=== PATIENT | female | born 1995 | race Caucasian/White ===

== ENCOUNTER 2024-04-17 20:26 | Emergency (ER) | payer SELFPAY ==
--- NOTE | ~2024-04-17 | US_ITS ---
EXAMINATION: US transvaginal DATE: 04/17/2024 22:33 INDICATION: rule out torsion TECHNIQUE: Multiple transabdominal and endovaginal sonographic images of the pelvis were obtained. COMPARISON: CT abdomen pelvis, same date FINDINGS: Uterus: 7.8 x 3.5 x 4.1 cm. Endometrial complex measures 10 mm. Right Ovary: 2.4 x 2.2 x 1.8 cm. Vascular flow is present. No adnexal mass. Left Ovary: 3.0 x 2.4 x 2.6 cm. Vascular flow is present. Corpus luteal cyst There is no free fluid in the pelvis. IMPRESSION: Normal pelvic sonogram findings. No sonographic evidence of ovarian torsion. Reviewed, dictated and finalized at [facility].
--- NOTE | ~2024-04-17 | CT_ITS ---
EXAMINATION: CT abdomen pelvis w con DATE: 04/17/2024 21:51 INDICATION: LLQ>RLQ tenderness TECHNIQUE: Computed tomography (CT) of the abdomen and pelvis was performed with 100 mL Omnipaque-350 intravenous contrast. Automated exposure control and iterative reconstruction technique were employe d. The dose-length product was 750.53 mGy-cm. COMPARISON: None. FINDINGS: Lower thorax: Unremarkable Liver: Normal. Biliary/Gallbladder: Gallbladder is absent. No bile duct dilation. Pancreas: No mass or duct dilation. Spleen: Normal. Adrenals:No mass. Kidneys: No suspicious mass, obstructing stone, or hydronephrosis. GI tract: No small or large bowel dilation. Normal appendix. Mesentery/Peritoneum: No ascites, mass, or free air. Retroperitoneum: No mass. Pelvis: Pelvic organs are within normal limits. Left corpus luteal cyst. Soft Tissues: Soft tissues and body wall unremarkable. Bones: No acute osseous finding. IMPRESSION: No acute abdominopelvic process detected. Reviewed, dictated and finalized at location K.
[2024-04-17 20:32] VITALS: BP 141/78; PULSE 107; RESP 15; TEMP 36.9; O2SAT 98
[2024-04-17 21:16] LABS: Basophils Percent Auto 0.4 % (0.2-1.2); Eosinophils Absolute Auto 0.3 K/mm3 (0-0.3); Eosinophils Percent Auto 2.9 % (0-4.4); Hematocrit 42.2 % (37.0-47.0); Hemoglobin 14.3 g/dL (12.0-15.0); Immature Granulocyte Absolute 0.03 K/mm3 (0.00-0.031); Immature Granulocyte Percent A 0.3 % (0-0.5); Lymphocytes Absolute Auto 2.71 K/mm3 (0.9-3.2); Mean Corpuscular HGB Conc 33.9 g/dl (32-36); Mean Corpuscular Hemoglobin 30.6 pg (26-34); Mean Corpuscular Volume 90.4 fl (80-100); Mean Platelet Volume 12.2 fl (7.4-10.4); Monocytes Absolute Auto 1.1 K/mm3 (0.1-0.6); Monocytes Percent Auto 9.5 % (2.6-8.5); Neutrophils Absolute Auto 7.1 K/mm3 (1.3-6.7); Neutrophils Percent Auto 62.9 % (45.5-73.1); Platelet Count Result 227 k/mm3 (150-375); Red Blood Count 4.67 M/mm3 (4.2-5.4); White Blood Count 11.3 K/mm3 (4.5-10.0)
[2024-04-17 21:19] LABS: Appearance Urine Cloudy (Clear); Bacteria Urine None Seen /hpf; Bilirubin Urine Negative (Negative); Blood Urine Negative (Negative); Color Urine Yellow (Yellow); Glucose Urine UA Negative (Negative); Ketones Urine Negative (Negative); Leukocyte Esterase Ur Negative LEU/UL (Negative); Nitrate Urine Negative (Negative); Non Pathogenic Casts 0-2; Protein Urine Negative (Negative); RBC Urine 0-2 /hpf (0-2); Specific Grav Ur 1.009 (1.001-1.035); Squamous Epithelial Cell Urine Occasional /hpf (Few); Urobilinogen Urine 0.2 mg/dL (<2.0); WBC Urine 0-5 /hpf (0-3); pH Urine 8.5 (5.0-9.0)
[2024-04-17 21:20] LABS: Add Urine Microscopic? YES
[2024-04-17 21:32] LABS: Alanine Aminotransferase 18 U/L (6-35); Albumin Level 4.6 g/dL (3.5-5.1); Alkaline Phosphatase 82 U/L (38-126); Anion Gap 7 mmol/L (4-12); Aspartate Amino Transferase 24 U/L (14-36); Bilirubin,Total 0.5 mg/dL (0.2-1.3); Blood Urea Nitrogen 10 mg/dL (7-17); Calcium 9.2 mg/dL (8.4-10.2); Carbon Dioxide 25 mmol/L (22-30); Chloride 106 mmol/L (98-107); Estimated Glomerular Filt Rate > 60; Glucose 99 mg/dL (65-110); Lipase 48 U/L (23-300); Potassium 3.8 mmol/L (3.4-5.0); Sodium 138 mmol/L (137-145)
--- NOTE | 2024-04-17 21:48 | ED.FEMALEGU ---
HPI - Female Genitourinary General Chief complaint: Abdominal Pain Stated complaint: abd pain, dysuria Time Seen by Provider: 04/17/24 20:35 Source: patient Mode of arrival: ambulatory Limitations: no limitations History of Present Illness HPI Narrative: This is a 28-year-old female who presents to the ED with chief complaint on abdominal pain x1 day. Reports that she felt okay this morning however started having pain while she was at work. States the pain has been all across the lower abdomen but worse in the left lower quadrant. States it comes and goes in severity. Certainly is worse with walking or certain movements. She also reports it her worse while trying to pee but denies dysuria specifically. Denies hematuria, flank pain, chest pain, shortness of breath, cough. Endorses constipation but has never had pain like this with constipation. Denies diarrhea, fevers, chills, syncope nausea, vomiting. Related Data Allergies Allergy/AdvReac Type Severity Reaction Status Date / Time Penicillins Allergy Mild Verified 09/27/12 15:23 amoxicillin Allergy Verified 09/27/12 15:23 Review of Systems Review of Systems: All systems as dictated in HPI Exam Narrative: GENERAL: Well-appearing, well-nourished, and in no acute distress. HEAD: Normocephalic, atraumatic. EYES: PERRLA and EOMI. ENT: Nares clear, no rhinorrhea or epistaxis. Mucous membranes moist. Oropharynx without tonsillar hypertrophy exudate or other lesions. NECK: Supple. No adenopathy or masses. CHEST: No respiratory distress. Clear to auscultation. No wheezes rales or rhonchi HEART: Regular rate and rhythm. No murmur heard. Normal peripheral pulses. ABDOMEN: Left lower quadrant tenderness. Right lower quadrant tenderness. Suprapubic tenderness. Soft, otherwise nontender, nondistended, normal active bowel sounds. Negative flank tenderness bilaterally MSK: Normal range of motion. No edema. SKIN: Warm, dry, no rash. NEURO: Alert and oriented x3. No focal deficits. PSYCH: Normal mood and affect. Course Vital Signs Vital signs: Vital Signs Temperature 98.4 F 04/17/24 20:32 Pulse Rate 107 H 04/17/24 20:32 Respiratory Rate 15 04/17/24 20:32 Blood Pressure 141/78 H 04/17/24 20:32 Pulse Oximetry 98 04/17/24 20:32 Oxygen Delivery Room Air 04/17/24 20:32 Temperature 98.4 F 04/17/24 20:32 Pulse Rate 80 04/17/24 23:11 Respiratory Rate 15 04/17/24 23:11 Blood Pressure 138/86 04/17/24 23:11 Pulse Oximetry 100 04/17/24 23:11 Oxygen Delivery Room Air 04/17/24 20:32 MDM - Female Genitourinary MDM Narrative Medical decision making narrative: This is a 28-year-old female who presents to the ED for chief complaint of lower abdominal pain beginning today. Vitals are normal. Exam shows tenderness throughout the lower abdomen. Lab work remarkable for slightly elevated white count 11.3 but no left shift. CMP grossly unremarkable. Urinalysis also unremarkable. pelvic ultrasound: Normal pelvic sonogram findings. No sonographic evidence of ovarian torsion. . CT abdomen pelvis with IV contrast: IMPRESSION: No acute abdominopelvic process detected.. Overall no acute process found on workup today. Discussed with patient that this may have been something like a ruptured ovarian cyst versus constipation. She feels much Toradol. She feels comfortable with going home. Pt will be discharged in stable condition. Return precautions given and supportive measures discussed. Pt is understanding and agreeable with plan for discharge and follow-up with PCP. Lab Data 04/17/24 21:09 04/17/24 21:09 Labs: Lab Results 04/17/24 Range/Units 21:09 WBC 11.3 H (4.5-10.0) K/mm3 RBC 4.67 (4.2-5.4) M/mm3 Hgb 14.3 (12.0-15.0) g/dL Hct 42.2 (37.0-47.0) % MCV 90.4 (80-100) fl MCH 30.6 (26-34) pg MCHC 33.9 (32-36) g/dl RDW 12.0 (11.5-14.5) % Plt Count 227 (150-
[2024-04-17] MEDS: MORPHINE SULFATE (*CRX) 4 MG/ML INJ IV PUSH (22:08)
[2024-04-17] MEDS: ONDANSETRON INJ 4 MG/2 ML VIAL IV PUSH (22:08)
[2024-04-17] MEDS: KETOROLAC 15 MG/ML VIAL (*BKC) IV PUSH (22:49)
[2024-04-17 23:11] VITALS: BP 138/86; PULSE 80; RESP 15; O2SAT 100
== END 2024-04-17 23:13 | disposition home or self-care (01) ==
PROVIDERS: Emergency Provider Physician Assistant; PCP Internal Medicine Infectious Disease
DX: R10.32 Left lower quadrant pain (principal)
CPT/HCPCS: 36415; 74177; 76830; 80053; 81001; 81025; 83690; 85025; 96374; 96375; 99284; J1885; J2270; J2405; Q9967

== ENCOUNTER 2024-07-30 09:25 | Outpatient (CLI) | payer BC, SELFPAY | END 2024-07-30 09:26 | disposition home or self-care (01) | LOC: ANHSURGERY 09:30 | PROVIDERS: PCP Internal Medicine; Visit Provider Obstetrics & Gynecology | DX: Z01.812 Encounter for preprocedural laboratory examination (principal); R10.2 Pelvic and perineal pain | CPT/HCPCS: 36415; 86850; 86900; 86901 ==

== ENCOUNTER 2024-08-07 00:16 | Day surgery (SDC) | payer BC, SELFPAY ==
[2024-07-29 09:23] VITALS: BMI 38.3
--- NOTE | 2024-07-29 09:40 | SUR.PREOP ---
Report to the Outpatient Waiting Room, entrance under the green pavilion located off [facility], at time 6:00a.m. on date 08/07/2024. Planned Procedure Time: 7:30a.m..? Time changes happen often and if your time is changed the preop area will call you the afternoon before. - You and your visitor will be asked to self-screen and do not enter if you have any COVID symptoms. Please call surgeon if you need to reschedule. - A mask is optional within the hospital at this time. Patients may have clear liquids (water, carbonated beverages, clear teas, apple juice) until 3 hours prior to surgery with a maximum of 20 ounces. - No food from midnight until time of surgery and no smoking - Infants may have breast milk until 4 hours before surgery, infant formula 6 hours prior to surgery. - Children will be allowed to drink immediately following surgery.? If applicable, please bring a bottle or sippy cup to assist with drinking. Juice, water, soda, and popsicles are readily available.? For infants on formula, please bring formula the day of surgery.? Pacifiers are allowed. Take only the following medications with a SIP of water on the morning of surgery: N/A DO NOT STOP ANY OF YOUR OTHER PRESCRIPTION MEDICATIONS PRIOR TO SURGERY EXCEPT THE FOLLOWING Medications to discontinue per physician N/A Date to take last dose N/A Please no make-up, nail occitan, hairspray, perfume, deodorant, or body powder the day of surgery.? No jewelry (including any body piercings) or valuables the day of surgery, leave them at home.? Please take a shower or bath the night before, or the morning of, surgery with an antibacterial soap.? Wear comfortable, loose fitting clothing.? Children are encouraged to wear pajamas. - Jewelry must be removed prior to entering the operating room.? Rings and piercings that are not removed may be cut off. - The hospital will not accept responsibility for valuables.? - Please leave all valuables, including medications, at home the day of surgery. If you are going home after surgery, a licensed hydraulic lift driver must drive you home.? - NO public transportation without another adult if you receive anesthesia. - We recommend that an adult stay with you for 24 hours following discharge. - We also recommend that you do not drive, make important decision, drink alcoholic beverages, or take any drugs that were not prescribed by your health care provider for at least 24 hours after your discharge time. For Pediatric surgeries, we recommend two adults accompany the child home. Follow any additional instructions given to you from your surgeon. Telephone instructions given to Amber Chio and asked if any additional questions and then verbalized understanding. Patient advised to call surgeon office or pre surgery nurse liaison [phone] if any additional questions.
--- NOTE | 2024-08-04 12:41 | PM.IMHP ---
H&P: HPI History of Present Illness Date/Time: 08/04/24 12:41 Chief Complaint: Pelvic pain dyspareunia Narrative: 28-year-old female admitted for laparoscopy for pelvic dyspareunia risks and benefits of the procedure glue and also , aspiration bleeding, transfusion perforation injury to bowel bladder or other internal need for laparotomy she received the [employer]CO[employer] handout entitled laparoscopy she had all questions answered to proceed [facility] Social History Social History Smoking status: Current every day smoker Tobacco type: e-cigarettes/vaping Substance use type: does not use Living arrangements: alone Spiritual care concerns: No Meds Home Medications and Allergies Home Medications Medication Instructions Recorded Confirmed Type No Home Medications 07/29/24 07/29/24 History Allergies Allergy/AdvReac Type Severity Reaction Status Date / Time Penicillins Allergy Mild Hives Verified 07/29/24 09:22 amoxicillin Allergy Hives Verified 07/29/24 09:22 Exam Const: General: cooperative, healthy appearing and comfortable Nutritional Appearance: average body habitus Orientation/consciousness: oriented to person, oriented to place and oriented to time Resp: Effort & Inspection: normal respiratory effort Cardio: Rate: regular rate Rhythm: regular rhythm Heart sounds: S1 normal heart sound present and S2 normal heart sound present GI: Inspection: normal to inspection : External Female Exam: normal external appearance Speculum Exam - Vagina: normal appearance of the vagina Speculum Exam - Cervix: normal appearance of the cervix Bimanual exam- vagina & uterus: uterine size normal and cervical motion tenderness Bimanual Exam- Adnexa, other: tender Assessment and Plan Assessment and plan (1) Pelvic pain: Code(s): R10.2 - Pelvic and perineal pain Status: Acute Assessment and Plan: diagnostic laparoscopy
[2024-08-07] VITALS (9 sets, daily range): BP systolic 97–123; BP diastolic 65–76; PULSE 75–96; RESP 14–20; TEMP 36.3; O2SAT 93–100
--- NOTE | 2024-08-07 05:24 | WPDHPUPDATE1 ---
History and Physical Update Update Date/Time: 08/07/24 05:24 History and Physical has been reviewed, including an updated exam of the patient. There are NO changes in the patient's condition. Risks, benefits, and alternatives have been discussed and questions answered. Patient agrees to proceed with procedure.
[2024-08-07] MEDS: ACETAMINOPHEN 500 MG TABLET 1000 MG PO (06:17)
[2024-08-07] MEDS: LACTATED RINGERS 1,000 ML 30 ML IV CONT (06:20)
--- NOTE | 2024-08-07 07:06 | P.PNAN_ITS ---
Anes - Initial Pre Proc Eval Procedure: Operation Date: 08/07/24 07:30 Proposed Procedures p Diagnostic Laparoscopy, with Bilateral Ovarian Cystectomy - Estuardo Berry MD Date/Time: 08/07/24 07:06 Surgeon: Estuardo Berry MD Pre Op Diagnosis: pelvic pain, excessive bleeding, becky ovarian cyst Patient Data Age: 28 Gender: F Height: 1.5 m Weight: 86.5 kg Last Vital Signs Temp 36.3 C L 08/07/24 06:00 Pulse 75 08/07/24 06:00 Resp 20 08/07/24 06:00 BP 112/76 08/07/24 06:00 Pulse Ox 97 08/07/24 06:00 O2 Del Method Room Air 08/07/24 06:00 Allergies Allergy/AdvReac Type Severity Reaction Status Date / Time Penicillins Allergy Mild Hives Verified 07/29/24 09:22 amoxicillin Allergy Hives Verified 07/29/24 09:22 Home Medications Medication Instructions Recorded Confirmed Type hydrocodone 5 mg-acetaminophen 325 1 tablet PO Q4H PRN pain #20 tabs 08/07/24 Rx mg tablet Patient hx anesthesia problems: none Family hx anesthesia problems: none Results Review: All pre-operative results and documents have been reviewed as part of the pre- operative evaluation. [facility] Social History Social History Smoking status: Current every day smoker Tobacco type: e-cigarettes/vaping Substance use type: does not use Living arrangements: alone Spiritual care concerns: No Anes - Eval Final PreProcedure Day of Procedure 08/07/24 07:06 Patient weight: obese Heart: regular rate and rhythm Lungs: clear to auscultation Airway: Mallampati scale class II Neurological: alert and oriented Last oral intake: >/= 8 hours ASA classification: III Emergent: no Anesthetic plan: proceed Anesthesia type and monitoring: general ETT and standard monitoring Results Review: All pre-operative results and documents have been reviewed as part of the pre- operative evaluation. Informed Consent: The patient's anesthetic plan and its attendant risks and benefits were discussed with the patient/family/POA. Questions were solicited and answers provided to the satisfaction of the patient/family/POA.
[2024-08-07] MEDS: SCOPOLAMINE 1 MG PATCH 1 PATCH TRANSDERM (07:15)
--- NOTE | 2024-08-07 07:23 | WPDHPUPDATE1 ---
History and Physical Update Update Date/Time: 08/07/24 07:23 History and Physical has been reviewed, including an updated exam of the patient. There are NO changes in the patient's condition. Risks, benefits, and alternatives have been discussed and questions answered. Patient agrees to proceed with procedure. add bilateral ovarian cystectomy
--- NOTE | 2024-08-07 08:04 | P.OP_ITS ---
Procedure Note - Detailed Date of Procedure 08/07/24 Pre-op Diagnosis pelvic pain, excessive bleeding, becky ovarian cyst Post-op Diagnosis Other (Pelvic pain/ endometriosis/left ovarian cyst) Procedure Performed laparoscopy with destruction left ovarian cyst /destruction of endometriosis Surgeon Estuardo Berry MD Anesthesia General Indications this is a 28-year-old female with pelvic pain and left ovarian cyst Findings simple left ovarian cyst. Endometrial implants along each uterosacral ligament. Normal-appearing right tube and ovary normal-appearing uterus. Normal-appearing appendix. Gallbladder surgically absent Description of Procedure the patient was prepped draped in the normal sterile fashion placed in the dorsal lithotomy position. Excellent general endotracheal anesthesia weighted s peculum placed in posterior fornix vagina. Anterior lip of the cervix grasped with a single-tooth tenaculum. Lawrence's cannula inserted the cervix and attached to the single-tooth. This would be used later for uterine manipulation. The bladder was emptied of clear urine. The weighted speculum was removed and the gloves were changed. A supraumbilical incision made the Veress needle passed in the abdomen. Abdomen filled with CO2 gas [id number]. The 5mm trocar advanced in the abdomen. Downside visualized no injury seen. Patient placed in Trendelenburg and a suprapubic incision made. The 5mm trocar advanced under direct visualization assuring. Areas of powder burn endometriosis were seen along the right uterosacral ligament and some blistered the clear endometriosis implants along the left uterosacral these were cauterized at 35 w per 2nd with monopolar cautery. The large benign-appearing left ovarian cyst was noted in linear incision was made and this was drained of clear fluid the remainder the pelvis appeared within normal limits and irrigation was undertaken. Photo documentation was undertaken. The lower site removed. The gas removed from the abdomen. The upper site. The incisions closed with 4 Monocryl and glue. The instruments removed from the vagina and the patient was awakened. All sponge, needle, instrument counts were correct. There were no immediate complications Estimated Blood Loss 5 Drains No Packing No Pathology None sent Complications No immediate complications Condition Stable Disposition PACU
[2024-08-07] MEDS: fentaNYL CITRATE INJ (*CRX) 100 MCG/2 ML VIAL 25 MCG IV PUSH ×4 (08:30→08:39)
[2024-08-07] MEDS: oxyCODONE HCL (*CRX) 5 MG TAB IR PO (09:13)
[2024-08-07] MEDS: KETOROLAC 15 MG/ML VIAL (*BKC) IV PUSH (09:25)
== END 2024-08-07 10:30 | disposition home or self-care (01) ==
PROVIDERS: PCP Internal Medicine; Visit Provider Obstetrics & Gynecology
PROC: (CPT 49320; principal; 2024-08-07 07:30)
DX: N80.3C3 Endometriosis of bilateral uterosacral ligament(s), unspecified depth (principal); R10.2 Pelvic and perineal pain; N94.10 Unspecified dyspareunia; N83.202 Unspecified ovarian cyst, left side; F17.290 Nicotine dependence, other tobacco product, uncomplicated
CPT/HCPCS: 58662; A9270; J1100; J1885; J2250; J2405; J2704; J3010; J7030; J7120

== ENCOUNTER 2024-12-15 09:07 | Emergency (ER) | payer OTHER, SELFPAY ==
[2024-12-15 09:08] VITALS: BP 148/88; PULSE 89; RESP 20; TEMP 36.8; O2SAT 98
--- OUTSIDE RECORDS SUMMARY | 2024-12-15 09:28 | XMS_ITS | Data Portability ---
Author Organization [facility] Address [address] [place] [address] Assessment No assessment recorded. Plan of Treatment Reminders Order Date Submit Date Provider Last Modified By Organization Details Last Modified Time Details Appointments None recorded. Lab urinalysis, complete 2014 015 [facility], [address] [place] [address], [address], [place], [address], 5 04:20:55 HbA1c (hemoglobin A1c), blood 2014 015 asavala [facility], [address] [place] [address], [address], [place], [address], 5 14:17:05 CBC w/ auto diff 2014 015 [facility], [address] [place] [address], [address], [place], [address], 5 04:20:55 CMP, serum or plasma 2014 015 [facility], [address] [place] [address], [address], [place], [address], 5 04:20:56 lipid panel, serum 2014 015 [facility], [address] [place] [address], [address], [place], [address], 5 04:20:57 thyroid panel, serum 2014 015 [facility], [address], [address], [place], [address], 5 04:20:59 thyroid panel, serum 2014 015 asavala [facility], [address], [address], [place], [address], 5 10:12:02 urinalysis, complete 2014 016 asavala [facility], [address], [address], , [place], [address], 6 09:40:21 lipid panel, serum 2014 016 asavala [facility], [address], [address], [place], [address], 6 09:40:52 HbA1c (hemoglobin A1c), blood 2014 016 asavala [facility], [address], [address], [place], [address], 6 09:50:36 CBC w/ auto diff 2014 016 asavala [facility], [address], [address], , [place], [address], 6 09:40:52 CMP, serum or plasma 2014 016 asavala [facility], [address], [address], [place], [address], 6 09:40:52 thyroid panel, serum 2014 016 asavala [facility], [address], [address], [place], [address], 6 09:50:36 Referral endocrinolo gy referral - Tachycardia with an elevated free T3, normal free T3 and normal TSH 10/21/20142014 015 [email or web address] [place], [address] [facility], [place], [address], 5 12:12:10 ENT referral - Complex thyroid cyst, normal TFT 2014 015 [email or web address] Jonathan Patten, [address] [place], [address], 5 16:48:11 Procedures None recorded. Surgeries None recorded. Imaging ultrasound, thyroid - Elevated Total free T3 2014 015 [facility] ([facility]), [address] [place] [address], [address], 5 17:41:08 Medication Orders None recorded. Patient TargetsNo targets recorded. Patient Instructions Encounter Date Encounter Id Patient Instructions Last Modified By Organization Details Last Modified Time 09/21/2015 [id number] When You Want to Lose Weight: Care Instructions [facility] Not available 09/21/2015 16:59:15 Reason for Referral Endocrinology Referral for T hyroid hormone tests outside reference range Tachycardia with an elevated free T3, normal free T3 and normal TSH 10/21/2014 Referring Physician: Oswald Grant, Internal Medicine, Encounter Date: 12/20/2014 ENT Referral for Cyst of thy roid Complex thyroid cyst, normal TFT Referring Physician: Oswald Grant, Internal Medicine, Encounter Date: 02/04/2015 Results Created Date Observation Date Name Description Value Unit Range Abnormal Flag Note LastModifiedBy Organization Detail LastModifiedTime 11/22/19 15 11/19/2014 imagi ng/di agnos tic resul t No observ ation record ed. oajao Not Available 2014 15:08:19 12/08/19 15 11/30/2014 imagi ng/di agnos tic resul t No observ ation record ed. oajao Not Available 2014 15:08:19 02/13/20 15 12/30/2014 imagi ng/di agnos tic resul t No observ ation record ed. [facility] (Imaging) [address], [place], [address], 02/04/2015 16:26:44 11/21/19 16 11/08/2015 imagi ng/di agnos tic resul t No observ ation record ed. [facility] [place] [address] , [place], [address], 11/21/2015 14:36:31 03/20/20 17 cardi ac monit or No observ ation record ed. [facility] [address], [place], [address], 03/20/2017 13:57:59 03/29/20 17 03/29/2017 trans -thor acic echoc ardio gram (TTE) (PROC ) No observ ation record ed. [facility] [address], [place], [address], 03/30/2017 08:22:49 04/03/20 17 04/03/2017 home sleep testi ng* No observ ation record ed. [facility] [address], [place], [address], 04/04/2017 06:36:43 04/17/20 24 04/17/2024 CT, abdom en + pelvi s, w/ contr ast No observ ation record ed. [place] [address], [place], [address], 04/20/2024 09:19:12 04/17/20 24 04/17/2024 US, trans vagin al No observ ation record ed. [place] [address], [place], [address], 04/20/2024 09:19:40 Result Notes None recorded. Problems Name Problem SNOMED Code Status Onset Date Resolution Date Notes Provider Name and Address Organization Details Recorded Time Tachycardia 2567166 Active Oswald Grant MD Attn: Shena case,[address] [facility], [place], [address], [place] - [facility] 5 15:20:28 Thyroid hormone tests outside reference range 433082291 Active Oswald Grant MD Attn: Shena case,[address] [facility], [place], [address], [place] [facility] 5 16:17:46 Cyst of thyroid 94575337 Active Oswald Grant MD Attn: Shena case,[address] [facility], [place], [address], [place] [facility] 5 16:17:46 Overweight 111308533 Active Oswald Grant MD Attn: Shena case,[address] [facility], [place], [address], [place] - [facility] 5 16:17:46 Notes: THyroid 19 y/o WF wh o I last saw in this office 09/22/2012, she was seen in the ER with CP and then by the glass silverer, Dr. Newberry who noted that her T3 was low? or high? 10/30/14. She was advised that she needed to be seen by an university tutor. However she was told that she needs to be seen here first before she can be referred, she also follows up with the psychiatrist HARSHA Mishra for her depression. Problem Notes None recorded. Procedures Surgical History Date Name Laterality Status Provider Name and Address Organization Details Recorded Time Cholecystectomy completed February YOON dolan [place] - [facility] 12/20/2014 15:00:35 Imaging Results Imaging Date Name Status LastModified by Organization Details LastModified Time 11/19/2014 imaging/diagnostic result completed [facility] Information not available 12/20/2014 15:08:19 11/30/2014 [email or web address] 12/20/2014 15:08:19 12/30/2014 imaging/diagnostic result completed [facility] (Imaging) [address] [place], [address], 02/04/2015 16:26:44 11/08/2015 imaging/[place] [address], [place], [address], 11/21/2015 14:36:31 03/20/2017 business continuity consultant completed [facility] [address], [place], [address], 03/20/2017 13:57:59 03/29/2017 trans-thoracic echocardiogram (TTE) (PROC) completed [facility] [address], [place], [address], 03/30/2017 08:22:49 04/03/2017 home sleep testing* completed [facility] [address], [place], [address], 04/04/2017 06:36:43 04/17/2024 CT, abdomen + pelvis, w/ contrast completed [address] [place] [address], [address], 04/20/2024 09:19:12 04/17/2024 US, transvaginal completed [address], [address], 04/20/2024 09:19:40 Procedure Notes None recorded. Medical Equipment None Reported. Allergies Allergen ID Allergen Name Allergen Category Reaction Reaction Severity Criticality Documentation Date Start Date Code Code System Note Provider Name and Address Organization Details Recorded Time [id number] amoxicill in medicatio n Not available Not available Not available 12/20/2014 723 RxNorm Not Available Not Available Not Available Medications Name Sig Start Date Stop Date Status Note LastModified by Organization Details LastModified Time Prescription - Prior Authorization Request active [place] Prior Auth Not Available Not Available Not Available propranolol 10 mg tablet One po daily active Not Available Not Available No t Available citalopram 20 mg tablet active Not Available Not Available No t Available bupropion HCl XL 150 mg 24 hr tablet, extended release active Not Available Not Available Not Available Lomedia 24 Fe 1 mg-20 mcg (24)/75 mg (4) tablet active Not Available Not Available Not Available Vitals Date Recorded Respiratory rate Body weight Body height Body mass index (BMI) Heart rate Body temperature Systolic blood pressure Diastolic blood pressure Provider Name and Address Organization Details Last Updated DateTime 5 20 /min 03848.9 6394 g 149.86 cm 32.7 kg/m2 80 /min 98 [degF] 122 mm[Hg] 72 mm[Hg] February YOON [place] - [facility] 5 15:59:51 Date Recorded Respiratory rate Body weight Heart rate Body mass index (BMI) Body height Body temperature Systolic blood pressure Diastolic blood pressure Provider Name and Address Organization Details Last Updated DateTime 5 20 /min 47580.5 9446 g 84 /min 0 kg/m2 48735.2 8 cm 99.2 [degF] 120 mm[Hg] 70 mm[Hg] February YOON [place] - [facility] 15:00:35 Date Recorded Respiratory rate Body weight Heart rate Body mass index (BMI) Body height Body temperature Systolic blood pressure Diastolic blood pressure Provider Name and Address Organization Details Last Updated DateTime 5 20 /min 47011.7 792 g 78 /min 32.3 kg/m2 149.86 cm 99.1 [degF] 118 mm[Hg] 72 mm[Hg] February YOON [place] - [facility] 5 16:22:32 Social History Question Answer Notes LastModified by Organizat ion Details LastModified Time Tobacco Smoking Status Never Smoker February YOON Weber [place] - [facility] 12/20/2014 15:00:35 Do You Have An Advance Directive? No Information not available 12/20/2014 What Is Your Level Of Alcohol Consumption? None Information not available 12/20/2014 What Is Your Level Of Caffeine Consumption? None Information not available 12/20/2014 How Much Tobacco Do You Chew? None Information not available 12/20/2014 Are You Currently Employed? Yes Information not available 12/20/2014 Education 12 Information no t available 12/20/2014 Are There Any Guns Present In Your Home? No Information not available 12/20/2014 Hard Of Hearing Or Deaf In One Or Both Ears? No Information not available 12/20/2014 Legally Blind In One Or Both Eyes? No Information not available 12/20/2014 Live Alone Or With Others? With Others Information not available 12/20/2014 How Many Children Do You Have? 0 Information not available 12/20/2014 Performs Monthly Self-breast Exam? No Information not available 12/20/2014 Seat Belts Used Routinely Yes Information not available 12/20/2014 Smoke Alarm In Home Yes Information not available 12/20/2014 General Stress Level Medium Information not available 12/20/2014 Do You Use Sunscreen Routinely? Yes Information not available 12/20/2014 Sex: Unknown Functional Status Question Answer Note LastModified by Organizat ion Details LastModified Time Are you able to care for yourself? Yes Information not available 12/20/2014 What is your exercise level? Occasional Information not available 12/20/2014 Mental Status None recorded. Family History Relationship Description Onset Age of this Age Resolved Age Notes LastModified by Organization Details LastModified Time Mother Attention deficit hyperactivit y disorder asavala Not available 12/20 15:00:35 Mother Depressive disorder asavala Not available 2014 15:00:35 Medical History Condition Response Anxiety/Depression Y Headaches Y Thyroid Problems Y Depression Y High Cholesterol Y Gynecological HistoryNo gynecological history recorded. Obstetrics History GPAL:G 0 P 0 0 0 0 Past Encounters Encounter ID Performer Location Encounter Start Date Encounter Closed Date Diagnosis/Indication Diagnosis SNOMED-CT Code Diagnosis ICD10 Code Diagnosis Note [id number] ADI Hughes (Adult Med) [address] [place] [address] 12/20/2014 14:27:48 12/20/2014 15:39:18 General examination of patient [id number] Tachycardia 7504532 Symp tomati c tachycardi a with normal free T3, elevated free T4 and a normal TSH 10/21/14, now on Propranolo l 10 mg po daily Thyroid ho rmone tests outside reference range 081636032 Abnormal TFTs, with a normal free T3, elevated free T4 and a normal TSH 10/21/14. Recheck labs, obtain thyroid ultrasound and have her seen by the endocrinol ogist. [id number] YOON Velasquez (Adult Med) [address] [place] [address] 02/04/2015 15:55:55 02/04/2015 16:44:58 Thyroid hormone tests outside reference range 918286316 Repeat labs done 12/22/2014 were reviewed with the patient, they are all normal and I think one can safely monitor this closely in 6 months. Cyst of thyroid 95508606 complex cyst of the thyroid, ENT evaluation [id number] MD Mariana Wood (Adult Med) [address] [place] [address] 09/21/2015 15:46:48 09/21/2015 17:55:43 Thyroid hormone tests outside reference range 113843610 R94.6 Repeat labs done 07/27/2015 were reviewed with the patient, they are all normal and I think one can safely monitor this closely. She saw both te endocrinol ogist, Dr. Chatman and the cardiologi st, Dr. Newberry. Cyst of thyroid 00608903 E04.1 complex cyst of the thyroid, endocrinol ogy evaluation was done, the impression was that it is a cyst. Overweight 428051194 E66 .3 Health Concerns Section Related Observation LastModified by Organization Detai ls LastModified Time None Recorded Concern Status LastModified by Organization Details LastModified Time None Recorded Advance Directives Directive N: Payers Encounter Date Sequence Insurance Name Policy Number Policy Corbin Covered Member ID Corbin Member ID Guarantor Name 12/20/2014 1 [facility] (MEDICAID HMO) [id number] Amber Chio [id number] Amber Chio 02/04/2015 1 [facility] (MEDICAID HMO) [id number] Amber Chio [id number] Amber Chio 09/21/2015 1 [facility] (MEDICAID HMO) [id number] Amber Chio [id number] Amber Chio OBGyn Episode No OBEpisode recorded.
--- OUTSIDE RECORDS SUMMARY | 2024-12-15 09:28 | XMS_ITS | CONTINUITY OF CARE DOCUMENT ---
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;neg echo 15 active Yoseph Newberry MD Sinus tachycardia; active Yoseph Newberry MD Chest pain, atypical active Yoseph Daniels Vitamin D deficiency; active Yoseph Newberry MD B12 deficiency; active Yoseph Newberry MD Dyspnea on exertion completed - Yoseph Newberry MD Obstructive sleep apnea active Yoseph akers MD hx of Palpitations completed - Yoseph Newberry MD Thyroid nodule active Yoseph Newberry MD Health maintenance examination active Kat Newberry MD ENCOUNTERS Date Type Provider Location Encounter Diag nosis - In-person encounter Office Visit Yoseph Newberry MD [facility] ObesityVitamin D deficiency;B12 deficiency;Obstructive sleep apneahx of Palpitations - In-person encounter Office Visit [facility] Dyspnea on exertionThyroid noduleHealth maintenance examination - In-person encounter Office Visit [facility] Sinus tachycardia;Chest pain, atypicalObstructive sleep apnea - In-person encounter Office Visit [facility] ObesityChest pain-type to be determined;NEG CXRhx of Congenital heart disease as child;neg echo 15Sinus tachycardia;Chest pain, atypicalVitamin D deficiency;B12 deficiency; - In-person encounter Office Visit [facility] ObesityCholecystectomyhx of Congenital heart disease as child;neg echo 15Sinus tachycardia; VITAL SIGNS Date Observation Value Provider Body Mass Index (Ratio) 38.83 kg/m2 Marybel Newberry MD blood pressure, resting No Elida Dillon blood pressure, diastolic 81 mm[Hg] Tete Dillon blood pressure, systolic 136 mm[Hg] Elizabeth Dillon oxygen saturation, oximetry 97 % Adriana Dillon respiratory rate E&M 18 /min Liza Dillon pulse rate 101 /min Adriana beckford weight E&M 185.8 [lb_av] Adriana brantley height E&M 58 [in_i] Adriana beckford blood pressure, diastolic 60 mm[Hg] Tete Sanz'González blood pressure, systolic 102 mm[Hg] Elizabeth Sanz'González pulse rate 90 /min Adelita O'González oxygen saturation, oximetry 98 % Adelita O'González respiratory rate E&M 16 /min Adelita O'González Body Mass Index (Ratio) 34.06 kg/m2 Bailey richards O'González weight E&M 163 [lb_av] Adelita O'González Body Mass Index (Ratio) 33.23 kg/m2 Bailey richards O'González blood pressure, diastolic 70 mm[Hg] Tete conner O'González blood pressure, systolic 104 mm[Hg] Elizabeth solis O'González pulse rate 100 /min Adelita O'González oxygen saturation, oximetry 97 % Adelita O'González respiratory rate E&M 16 /min Adelita O'González weight E&M 159 [lb_av] Adelita O'González Body Mass Index (Ratio) 33.65 kg/m2 Ai Allenoney blood pressure, deluca tolic, second observation 76 mm[Hg] Adela Chow blood pressure, syst olic, second observation 120 mm[Hg] Adela Chow blood pressure, diastolic 76 mm[Hg] Na constantinojoseph Chow blood pressure, systolic 120 mm[Hg] Clarissa bandar Allenoney pulse rate 102 /min Adela Chow oxygen saturation, oximetry 98 % Adela Chow respiratory rate E&M 18 /min Adela Chow weight E&M 161 [lb_av] Adela Chow blood pressure, diastolic 76 mm[Hg] Me celestin Jarad blood pressure, systolic 124 mm[Hg] Annalee vahid Abraham blood pressure, diastolic, left arm 60 mm [Hg] Adriana Dillon blood pressure, systolic, left arm 102 mm [Hg] Adriana Garciaenson blood pressure, diastolic, right arm 60 m m[Hg] Adriana Dillon blood pressure, systolic, right arm 106 m m[Hg] Adriana Dillon blood pressure, diastolic 60 mm[Hg] Tete Dillon blood pressure, systolic 106 mm[Hg] Elizabeth Dillon Body Mass Index (Ratio) 33.06 kg/m2 Elida Dillon pulse rate 99 /min Adriana beckford oxygen saturation, oximetry 98 % Adriana Dillon respiratory rate E&M 16 /min Liza Dillon weight E&M 158.2 [lb_av] Adriana brantley height E&M 58 [in_i] Adriana beckford RESULTS Date Observation Value Provider Reference Range Interpretation Location 7 free thyroxine index 6.4 ??g/dL [facility] 4.4 - 11.4 7 triiodothyronine uptake 1.2 TBI [facility] 0.8 - 1.3 7 thyroxine, serum, total 7.7 ??G/DL [facility] 4.5 - 11.7 7 thyroid stimulating hormone, serum 2.100 ??IU/ML [facility] 0.270 - 4.200 7 pro brain natriuretic peptide 12.6 pg/mL [facility] 0.0 - 125.0 7 ferritin, serum 49.2 ng/mL [facility] 13.0 - 150.0 7 red blood cell distribution width, size density 45.7 fL [facility] - 7 immature granulocytes, percentage of total cells, blood 0.2 % [facility] - 7 nucleated red blood cells as percent of blood leukocytes 0.0 % [facility] - 7 red blood cell (erythrocyte) count, per high power field 0.0 10*3/UL [facility] - 7 eosinophils as percent of blood leukocytes 2.4 % [facility] - 7 neutrophils as percent of blood leukocytes 57.6 % [facility] - 7 Absolute Neutrophils 4.9 CELLS/UL [facility] 1.5 - 7.8 7 basophils as percent of blood leukocytes 0.6 % [facility] - 7 Absolute Basophils 0.1 CELLS/UL [facility] 0.0 - 0.2 7 monocytes as percent of blood leukocytes 10.5 % [facility] - 7 Absolute Monocytes 0.9 CELLS/UL [facility] 0.2 - 1.0 7 lymphocytes as percent of blood leukocytes 28.7 % [facility] - 7 Absolute Lymphocytes 2.4 CELLS/UL [facility] 0.9 - 3.9 7 mean platelet volume 12.2 (?) [facility] - 7 platelet count 330.0 THOUSAND/ UL [facility] 100.0 - 400.0 7 mean corpuscular hemoglobin concentration, RBC 31.0 G/DL [facility] 31.0 - 38.0 7 mean corpuscular hemoglobin, RBC 30.4 pg [facility] 25.0 - 35.0 7 mean corpuscular volume, RBC 98.1 fL [facility] 75.0 - 100.0 7 hematocrit, blood 46.1 % [facility] 35.0 - 55.0 7 hemoglobin, blood 14.3 g/dL [facility] 11.5 - 16.5 7 erythrocyte count, whole blood 4.7 MILLION/U L [facility] 3.5 - 5.5 7 iron, serum 72.0 ug/dL [facility] 25.0 - 156.0 7 iron saturation percent, serum 16.5 % [facility] 20.0 - 50.0 Low 7 iron binding capacity, total 435.4 ug/dL [facility] 250.0 - 450.0 HISTORY OF MEDICATION USE Medication Status Instructions Dates Provider Indications Com ments TOPAMAX 50 MG ORAL TABLET active one a day 6 Yoseph Newberry MD ADIPEX-P 37.5 MG ORAL CAPSULE active one a day 6 Yoseph Newberry MD VITAMIN B-12 1000 MCG ORAL TABLET active One tablet daily 6 Yoseph Newberry MD B-12 1000 MCG ORAL CAPSULE completed 1 capsule daily 8 - 6 Adriana Dillon VITAMIN D3 5000 UNIT ORAL TABLET active one a day 8 Yoseph Newberry MD QSYMIA 7.5-46 MG ORAL CAPSULE EXTENDED RELEASE 24 HOUR completed one tablet daily 3 - 4 Adela Chow QSYMIA 3.75-23 MG ORAL CAPSULE EXTENDED RELEASE 24 HOUR completed one tablet daily 3 - 4 Adela Chow PROPRANOLOL HCL 10 MG ORAL TABLET active twice a day 4 Yoseph Newberry MD LOMEDIA 24 FE TABLET completed once daily - 4 Adela Claudine SOCIAL HISTORY Date Observation Value Provider social history E&M S moking History: P remy has never smoked. Yoseph Newberry MD social history reviewed E&M revi ewed - no changes required Yoseph Nweberry MD smoking status Never smoker Adriana Quintero social history reviewed E&M revi ewed - no changes required Yoseph Newberry MD smoking status Never smoker Adelita Sanz'González smoking status Never smoker Adelita Umu'González social history reviewed E&M revi ewed - no changes required Yoseph Newberry MD handedness R Handed Yoseph Daniels smoking status Never smoker Yoseph Newberry MD smoking status never Brandy Charltonseema n social history reviewed E&M revi ewed - no changes required Yoseph Newberry MD smoking status Never smoker Adriana Sotocheng FUNCTIONAL STATUS Date Observation Value Provider periodic limb movement index absent (0) Brandy Abraham FAMILY HISTORY Family Member Condition Mother Negative FH of Coron damien Artery Disease Maternal Grandmother Family History of C oronary Artery Disease: INSURANCE PROVIDERS Payer name Policy type / Coverage type [employer] party ID [employer] MEDICAID Medicaid [id number] ADVANCE DIRECTIVES Name Date DISCUSSED - NO DECISION MADE TREATMENT PLAN Date Name Performer Cardiology:will try diet pills H kayla Newberry MD Cardiology:not complaitn Yoseph Newberry MD Cardiology: l ytes ok.tsh ok, t3 high, has small nodule in thyrood, sees michelle Newberry MD Cardiology:non compaliant Yoseph Newberry MD Cardiology:non complaint Yoseph Newberry MD Cardiology Yoseph Newberry MD Cardiology Yoseph Newberry MD Cardiology Yoseph Newberry MD Cardiology Yoseph Newberry MD Cardiology Yoseph Newberry MD Cardiology Yoseph Newberry MD Cardiology:nml a1c Yoseph Newberry MD Cardiology:better with betablice r Yoseph Newberry MD Cardiology: l ytes ok.tsh ok, t3 high, has small nodule in thyrood, sees michelle Newberry MD Cardiology:per dr rodney, cystic he is folowing Yoseph Newberry MD Cardiology:RHYTHM: S INUS RHYTHM with a SINUS ARRHYTHMIA at times. T he average heart rate was 86 BPM with a maximum heart rate of 153 BPM at 15:12:32. T he minimum heart rate was 56 BPM at 03:30:08. N o Ventricular ectopics. N o Supraventricular ectopics N o diary submitted. C Nomi 2 was the Primary channel during the analysis. Yoseph Newberry MD Cardiology:to get machine Yoseph Newberry MD Cardiology:neg xray and stress e cho Yoseph Newberry MD Cardiology:contines to have atypcal pain despite neg stress echo and cxr Yoseph Newberry MD Cardiology:lytes ok. tsh ok, t3 high, has small nodule in thyrood, sees michelle Newberry MD :No significant Obst ructive or Restrictive Airways Disease. T he diffusing capacity is normal. E ssentially normal PFTs. Yoseph Newberry MD Follow up : O rders: F ull PFT (*) Yoseph Newberry MD Follow up : O rders: F ull PFT (*) Yoseph Newberry MD ER FU: O rders: C omplete Echo (CPT-55248) H EMOGLOBIN A1c (496) V ITAMIN D, 25-HYDROXY, LC/MS/MS (16461) V ITAMIN B12 (117) Yoseph Newberry MD Date Name PROBNP, N TERMINAL THYROID PANEL WITH T SH, 3RD GENERATION Sleep Study Home CBC (INCLUDES DIFF/P LT) IRON AND TOTAL IRON BINDING CAPACITY FERRITIN Complete Echo Holter Monitor 24 Hr VITAMIN D, 25-HYDROX Y, LC/MS/MS VITAMIN B12 Sleep Study Home Holter Monitor 24 Hr DLCO Order - [id number] FRC Order - [id number] FVC Order - [id number] Full PFT VITAMIN B12 VITAMIN D, 25-HYDROX Y, LC/MS/MS HEMOGLOBIN A1c THYROID PANEL WITH T SH, 3RD GENERATION Holter Monitor 24 Hr STR - Routine Complete Echo HISTORY OF PROCEDURES Procedure Date Procedure Name Provider Procedure Notes S tatus ZIO Holter Hookup Yoseph Newberry MD c ompleted EKG Yoseph Newberry MD complete d SNOMED-CT: 364885820 [id number] Current Medications Documented Yoseph Newberry MD completed SNOMED-CT: 360462479 549289 Current Medications Documented Yoseph Newberry MD completed Holter, 24 or 48 Yoseph Newberry MD co mpleted EKG Yoseph Newberry MD complete d EKG Yoseph Newberry MD complete d
--- OUTSIDE RECORDS SUMMARY | 2024-12-15 09:29 | XMS_ITS | Referral Summary ---
Author Organization [facility] [address] [place] [id number] Care Team Providers Care Pipeliner Name Role Phone Misael Obregon MD Primary Care Provider [phone] Allergies Active Allergy Reactions Criticality Noted Date Comments Amoxicillin Medications No known medications Active Problems Problem Noted Date Diagnosed Date Thyroid nodule 12/25/2022 Assessment & Plan (12/25/2022 5:30 PM CORK MIXER): I looked at Amber's thyroid under our ultrasound machine She has a right almost pure cystic nodule around 1.5 cm, with some a egg shell calcifications. I tried to pull some fluid from the cyst but I could go through the calcifications and the procedure was painful for the patient so I had to stop. It seems that this cyst has not changed much in size when compared with report from 2015. However, the patient is very upset and bothered about the pain and she would like to consider surgical option. I am sending a referral to ENT surgeon, Dr. Winkler for his opinion Social History Tobacco Use Types Packs/Day Years Used Date Smoking Tobacco: Never Smokeless Tobacco: Never Tobacco Cessation:Counseling Given: Not Answered Alcohol Use Standard Drinks/Week Comments No 0 (1 standard drink = 0.6 oz pur e alcohol) Comments Unknown Sex and Gender Information Value Date Recorded Sex Assigned at Not on file Legal Sex Female 8:45 PM CORK MIXER Gender Identity Not on file Sexual Orientation Not on file Last Filed Vital Signs Vital Sign Reading Time Taken Comments Blood Pressure 116/80 12/25/2022 12:17 PM CORK MIXER Pulse 88 11/30/2015 3:11 PM CORK MIXER Temperature - - Respiratory Rate 12 12/25/2022 12:17 PM CORK MIXER Oxygen Saturation - - Inhaled Oxygen Concentration - - Weight 82.2 kg (181 lb 3.2 oz) 12/28/2022 3:17 P M CORK MIXER Height 149.9 cm (4' 11 ) 12/28/2022 3:17 PM CORK MIXER Body Mass Index 36.6 12/28/2022 3:17 PM CORK MIXER Plan of Treatment Not on file Insurance [employer] OOS [employer] O[employer]AL Care Teams Pipeliner Relationship Specialty Start Date End Date Misael Obregon MD PCP - General Internal Medicine 02/06/19
--- OUTSIDE RECORDS SUMMARY | 2024-12-15 09:29 | XMS_ITS | Continuity of Care Document ---
Author Organization [employer] Address [address] [place] [address] Phone Care Team Providers Care Scrummaster Name Role Phone Gabriela Hernandez Unavailable Unavailable Allergies, Adverse Reactions, Alerts Substance Reaction Status Criticality Penicillins Active No Information Procedures Procedure Date FALL RISK ASSESSMENT DOC'D PRES/ABSN URINE INCON ASSESS Pt inelig neg scrn depres GENERAL HEALTH PANEL FREE T4 (FT4) HEMOGLOBIN A1C HGA1C, GLYCO LIPID PANEL URINALYSIS, DIPSTICK (UA) - Office Lab J ROUTINE VENIPUNCTURE PREVENTATIVE-NEW: 18-39 BODY MASS INDEX DOCD SYST BP LT 130 MM HG DIAST BP < 80 MM HG NUTRITIONAL THERAPY; REASSES SMENT AND INTERVENTION, INDIVIDUAL, EACH 15 MINUTES BODY MASS INDEX DOCD NUTRITIONAL THERAPY; INITIAL ASSESSMENT AND INTERVENTION, INDIVIDUAL, EACH 15 MT BODY MASS INDEX DOCD FALL PLAN OF CARE DOC'D URINE INCON PLAN DOC'D PRES/ABSN URINE INCON ASSESS OFFICE [id number] BODY MASS INDEX DOCD SYST BP GE 130 - 139MM HG DIAST BP 80-89 MM HG Advance Directives Directive Yes / No Effective Date File Name Life Support Not Answered N/A N/A Intubation Not Answered N/A N/A Antibiotics Not Answered N/A N/A IV Fluid Support Not Answered N/A N/A Tube Feed Not Answered N/A N/A Other Directive N/A N/A WARNING:The information contained in this section is historical and is provided for information only and does not constitute a legal document or any assurance that the information is still accurate. Please verify the information with the calvin of the legal document before using it for clinical purposes. Encounters Encounter Description Practice Location Reason(s) For Visit Diagnoses Date Provider Providers Copied on Encounter [facility], [address], [place], [place], [address] , tel: [phone] [facility] No Information 4 Devi Ochoa. [address], [address], [place], [place], [address] , . tel: [phone] [facility], [address], [place], [place], [address] , tel: [phone] Care Management Anxiety 3 Devi Ochoa. [address], [address], [place], [place], [address] , [place]. tel: [phone] PREVENTATIVE -NEW: 18-39 [facility], [address], [place], [place], [address] , tel: [phone] [facility] preventive exam (chief complaint)C hronic Conditions (chief complaint)c hronic conditions (chief complaint) Encounter for general adult medical examination without abnormal findingsClass 1 obesity due to excess calories without serious comorbidity with body mass index (BMI) of 34.0 to 34.9 in adultBody mass index [BMI] 34.0-34.9, adultThyroid disorderAnxietyFam moses history of diabetes mellitusBody mass index [BMI] 35.0-35.9, adultMass of right side of neck 3 Devi Ochoa. [address], [address], [place], [place], [address] , . tel: [phone] Referring Provider: Gabriela Quinonez, [address], [place], [address] . tel:[phone] [facility], [address], [place], [place], [address] , tel: [phone] [facility] Dietary counseling and surveillanceObesit y (BMI 30-39.9)Body mass index (BMI) 36.0-36.9, adult 3 9 Fermín Maciel. [address] [place] [address], [id number] , . tel: [phone] Referring Provider: Misael Obregon, [address] [place] [address] [address] , [place], [address] . tel:[phone] [facility], [address], [place], [place], [address] , tel: [phone] [facility] Obesity (BMI 30-39.9)Dietary counseling and surveillanceBody mass index (BMI) 36.0-36.9, adult 9 Fermín Maciel. [address] [place] [address], [place], [place], [address] , . tel: [phone] Referring Provider: Misael Obregon, [address] [place] [address] [address], [place], [address] . tel:[phone] OFFICE [facility], [address], [place], [place], [address] , tel: [phone] [facility] Chronic Conditions (chief complaint) Obesity (BMI 30-39.9)Thyroid disorderFatigue, unspecified type 9 Sabas Douglas. [address] [place] [address], [address], [place], [place], [address] , [place]. tel: [phone] Referring Provider: Misael Obregon [address] [place] [address] [address], [place], [address] . tel:[phone] [facility], [address], [place], [place], [address] , tel: [phone] [facility] Chronic nonintractable headache, unspecified headache typeDizzinessVisio n changes 9 Sabas Douglas. [address] [place] [address], [address] , [place], [place], [address] , . tel: [phone] [facility], [address], [place], [place], [address] , tel: [phone] [facility] dizziness and headaches (chief complaint)C hronic Conditions (chief complaint) Body mass index (BMI) 35.0-35.9, adultChronic nonintractable headache, unspecified headache typeDizziness Devi Ochoa. [address] [place] [address], [address] , [place], [place], [address] , . tel: [phone] Referring Provider: Misael Obregon, [address] [place] [address], [place], [address] . tel:[phone] [facility], [address], [place], [place], [address] , tel: [phone] [facility] Thyroid disorderObesity (BMI 30-39.9)Encounter for general health examination 9 Sabas Douglas. [address] [place] [address], [address] , [place], [place], [address] , . tel: [phone] Referring Provider: Misael Obregon, [address] [place] [address] [address] , [place], [address] . tel:[phone] Family History Family Member Type Diagnosis Age At Onset Mother Problem (finding) depression Mother Problem (finding) Allergies Mother Problem (finding) osteoporosis Mother Problem (finding) attention deficit hyper activity disorder Payers Payer name Insurance type Covered green party ID Sara duenas(s) [facility] ACC[facility] [id number] Social History Type Description Quantity Date Captured Comments Alcohol Use Details Unknown Caffeine Use Details Unknown Tobacco Use Status No Information Smoking Status No Information Sex Female Sexual Orientation Straight or heterosexual Gender Identity Female Chief Complaint And Reason For Visit No Information Reason For Referral Reason For Referral No Information Plan Of Treatment Date Type Action Status Goal Dietary management education , guidance, and counseling completed Referral Ordered: [facility] [place] (related to Anxiety) ordered Referral Referred To: [id number] Ordered: Referrals: Counseling/mental health services. Location: [facility]. Evaluate and treat - Level 2 ordered History Of Present Illness Encounter Date Complaint History Of Prese nt Illness preventive exam The patient stat es she uses abstinence for control. Last LMP was 11/15/2022. Her menses is irregular with varies flow. Negative for dysmenorrhea and menorrhagia. Negative for: breast discharge, breast lump(s) and breast pain. Positive for: breast self exam. Menopausal symptoms negative for: insomnia. Associated symptoms include anxiety. Pertinent negatives include abnormal bleeding (hematology), abnormal vaginal bleeding, depression, difficulty falling sleep, dyspareunia, history of infertility, sexual dysfunction, sleep disturbances, urinary incontinence, urinary urgency and vaginal discharge. Diet mostly healthy. She reports getting 100 mg/day calcium from dietary sources. She cannot take calcium due to lactose intol.. She does not take Vitamin D. She does not take multivitamins. She does not take Folic acid.The patient states her exercise level is moderate and frequency is occasional. The patient does not use tobacco. She has not been exposed to passive smoke. She has not been exposed to passive vaping. She does drink alcohol. Additional information: She is here today for a preventive exam, and to re establish with this practice. She was last here in 2018. She states she went through a time without insurance. She is accompanied by her mother today. She is single, she does not smoke, rarely drinks a glass of wine. She is not taking any medications presently. She lives with female best friend, previously her grandmother lived with her (Makeda De Leon) until her in 2021. 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 She states she had 2 COVID vaccines, does not have card with her. She wants to have hepatitis B vaccine- advised she [facility] or [facility] or [facility]. Chronic Conditions *See Chronic Conditions HPI chronic conditions *See Chronic Conditions HPI Chronic Conditions *See Chronic Conditions HPI Chronic Conditions *See Chronic Conditions HPI dizziness and headaches The symp toms began 9 to 10 years ago. The symptoms are reported as being moderate. The symptoms occur randomly. She states the symptoms are chronic and are poorly controlled. She notes in the past she has had imaging- beginning when she lived in [place] and then saw a neurologist at [place]. She states at one time she had to 'have a spinal tap to remove extra fluid'. She states she has not seen the neurologist for a while. She states she used Topamax briefly in the past for migraine prevention. She states she didn't feel it helped. She presently is using ibuprofen with some relief. She notes she has 'plain headache' every day- uses ibuprofen with some relief. She states she is having migraines twice weekly and they are getting 'more intense'. She states she can have them at any portion of her menstrual cycle. She notes she has not used Nuvaring yet- she will begin use this Saturday. She states she has not been to the neurologist at [place] since about 2012. She states she notices 'blotches' before her eyes when 'migraine headache' is approaching, sometimes with nausea, no vomiting. She does have photophobia and phonophobia. Functional Status Date Functional Assessmen t No Information Instructions Date Instruction Additional Infor gloria She is here today fo r a preventive exam, and to re establish with this practice. She was last here in 2018. She states she went through a time without insurance. She is accompanied by her mother today. She is single, she does not smoke, rarely drinks a glass of wine. She is not taking any medications presently. She lives with female best friend, previously her grandmother lived with her (Makeda De Leon) until her in 2021. 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 She states she had 2 COVID vaccines, does not have card with her. She wants to have hepatitis B vaccine- advised she can have at [facility] or [facility] or [facility] Related to Encounter for general adult medical examination without abnormal findings She states she does not really want to take a medication daily. She would like to talk with a counselor/psychiatrist. She is agreeable to being contacted by Care Management team. Also discussed possibility of Employee Assistance Program with her employer. Related to Anxiety Checking hgba1c today Related to Family history of diabetes mellitus will check thyroid l abs today, set up for [place] of thyroid and refer back to event decorator. Related to Thyroid disorder Continue to work on weight loss, diet and exercise as able. Related to Class 1 obesity due to excess calories without serious comorbidity with body mass index (BMI) of 34.0 to 34.9 in adult Disease process Needs to manage slee p time as possible and continue to look for a job with regular hours. Related to Fatigue, unspecified type Check report. Related to Thyro id disorder Continue a healthy d iet, exercise, and weight loss as appropriate. Related to Obesity (BMI 30-39.9) Disease process Checking labs today, will set up for [place] or have her follow with neuro. She declines to start medication presently, will continue to use ibuprofen as needed. Related to Chronic nonintractable headache, unspecified headache type She notes she is hav ing some dizziness with headaches recently. She states she does not feel like she will fall, has had nausea once, never vomited with it. Related to Dizziness Prescribed activity/ exercise education Related to Body mass index (BMI) 35.0-35.9, adult Dietary management e ducation, guidance, and counseling Related to Body mass index (BMI) 35.0-35.9, adult Disease process Assessments Type Assessment Date No Information Patient Care Teams Name Effective Dates (start - stop) Status Members No Information
--- OUTSIDE RECORDS SUMMARY | 2024-12-15 09:29 | XMS_ITS | Clinical Summary ---
Author Organization [facility] Building [address] [place] [address] Care Team Providers Care Cloth Finishing Range Operator Name Role Phone Misael Obregon MD Primary Care Provider [phone] Allergies Active Allergy Reactions Criticality Noted Date Comments Amoxicillin Medications No known medications Active Problems Problem Noted Date Diagnosed Date Thyroid nodule 12/25/2022 Assessment & Plan (12/25/2022 5:30 PM CERTIFIED REHABILITATION COUNSELOR): I looked at Amber's thyroid under our [...] ENT surgeon, Dr. Winkler for his opinion Medical History Medical History Date Comments Disorder of thyroid Thyroid dise ase Family History Medical History Relation Name Comments Diabetes type II Other Family hist ory of Diabetes mellitus type 2; Relation Name Status Comments Other Social History Tobacco Use Types Packs/Day Years Used Date Smoking Tobacco: Never Smokeless Tobacco: Never Tobacco Cessation:Counseling Given: Not Answered Alcohol Use Standard Drinks/Week Comments No 0 (1 standard drink = 0.6 oz pur e alcohol) Comments Unknown Sex and Gender Information Value Date Recorded Sex Assigned at Not on file Legal Sex Female 8:45 PM CERTIFIED REHABILITATION COUNSELOR Gender Identity Not on file Sexual Orientation Not on file Obstetrics History Last Filed Vital Signs Vital Sign Reading Time Taken Comments Blood Pressure 116/80 12/25/2022 12:17 PM CERTIFIED REHABILITATION COUNSELOR Pulse 88 11/30/2015 3:11 PM CERTIFIED REHABILITATION COUNSELOR Temperature - - Respiratory Rate 12 12/25/2022 12:17 PM CERTIFIED REHABILITATION COUNSELOR Oxygen Saturation - - Inhaled Oxygen Concentration - - Weight 82.2 kg (181 lb 3.2 oz) 12/28/2022 3:17 P M CERTIFIED REHABILITATION COUNSELOR Height 149.9 cm (4' 11 ) 12/28/2022 3:17 PM CERTIFIED REHABILITATION COUNSELOR Body Mass Index 36.6 12/28/2022 3:17 PM CERTIFIED REHABILITATION COUNSELOR Plan of Treatment Health Maintenance Due Date Last Done Comments Cervical Cancer Screening 1993 Depression Screening 1993 Hepatitis C Screening 1993 DTaP/Tdap/Td Vaccine (4 - Tdap) 2004 06/12/1994, 05/01/1994, 03/05/1994 Varicella Vaccines (1 of 2 - 13+ 2-dose series) 2006 Hepatitis B Screening 2011 Regular Well Visit/Exam 18-64 2011 Covid-19 Vaccine (3 - 2023-2 5 season) 2024 03/09/2021, 02/16/2021 Influenza Vaccine (#1) 2024 HPV Vaccines Aged Out No longer eligi ble based on patient's age to complete this topic Pneumococcal vaccine <65 Aged Out No longer eligible based on patient's age to complete this topic Insurance [employer] OOS BLUE ACCESS OOS ANTH [employer] [id number] Care Teams Cloth Finishing Range Operator Relationship Specialty Start Date End Date Misael Obregon MD PCP - General Internal Medicine 02/06/19
--- NOTE | 2024-12-15 10:47 | ED_ITS ---
HPI - General Adult General Chief complaint: Upper Respiratory Infection Stated complaint: 11 weeks preg, SOB/cough Time Seen by Provider: 12/15/24 10:26 History of Present Illness HPI narrative: Amber Barroso is a 29-year-old female 1 para 0 11 half weeks follows up with Dr. Duke revealed presents with complaints of having URI/cough/chest congestion for 2 months. She states that she finished an antibiotic Keflex about a week ago that did not change her symptoms. She states that she has 2 days left of a steroid pack that she is taking now that she is not feeling any better she also states that she has a headache she is feeling dizziness off and on. She states that 2 months ago when this started she felt like she was having fevers and worsening, but has continued with a nonproductive cough and not feeling well. She denies nausea vomiting she states she is eating and drinking well she states that she has not had a normal bowel movement in a couple weeks. She states that she is taking milk of magnesia and she is passing small amounts at a time. Related Data Allergies Allergy/AdvReac Type Severity Reaction Status Date / Time Penicillins Allergy Mild Hives Verified 07/29/24 09:22 amoxicillin Allergy Hives Verified 07/29/24 09:22 Review of Systems 2 Review of Systems: All systems reviewed & are unremarkable except as noted in HPI and below PMFSH Social History Social History Smoking status: Current every day smoker Tobacco type: e-cigarettes/vaping Substance use type: does not use Living arrangements: alone Spiritual care concerns: No Exam 2 Narrative: GENERAL: Well-appearing, well-nourished, and in no acute distress. HEAD: Normocephalic, atraumatic. EYES: PERRLA and EOMI. ENT: Nares clear, no rhinorrhea or epistaxis. Mucous membranes moist. Oropharynx without tonsillar hypertrophy exudate or other lesions. Bilateral TMs pearly carnes non bulging NECK: Supple. No adenopathy or masses. No carotid bruits or JVD CHEST: Clear to auscultation. No respiratory distress. No wheezes rales or rhonchi HEART: Regular rate and rhythm. No murmur heard. Normal peripheral pulses. ABDOMEN: Soft, nondistended EXTREMITIES: Normal range of motion. No edema. SKIN: Warm, dry, no rash. NEURO: No focal deficits. Alert and oriented x3. PSYCH: Normal mood and affect. Course Vital Signs Vital signs: Vital Signs Temperature 36.8 C 12/15/24 09:08 Pulse Rate 89 12/15/24 09:08 Respiratory Rate 20 12/15/24 09:08 Blood Pressure 148/88 H 12/15/24 09:08 Pulse Oximetry 98 12/15/24 09:08 Oxygen Delivery Room Air 12/15/24 09:08 Temperature 36.8 C 12/15/24 09:08 Pulse Rate 89 12/15/24 09:08 Respiratory Rate 20 12/15/24 09:08 Blood Pressure 148/88 H 12/15/24 09:08 Pulse Oximetry 98 12/15/24 09:08 Oxygen Delivery Room Air 12/15/24 11:12 Medical Decision Making MDM Narrative Medical decision making narrative: 29-year-old female who is 11 half weeks with 1st presents with complaints of having 2 months of a cough/URI symptoms not feeling well headache and some off and on dizziness. She states that she took Keflex for a week primary ago and is finishing a steroid pack now but still not feeling better. On exam she is alert oriented x4 no respiratory distress lung sounds are clear throughout oxygen is 90-100% on room air, afebrile not tachycardic. She states that her headache is 4/10 at this time it was worse last night. PERC score negative Concern for : Viral syndrome/anemia/pneumonia/dehydration Plan to check labs, viral swabs will treat her with IV fluids Patient refused the IV fluids and IV Reglan. CBC white blood cell 14 otherwise hemodynamically stable CMP-bicarb 17 anion gap 14, otherwise unremarkable UA-unremarkable Viral swab-negative Patient re-evaluated states that she thinks that she is feeling better vitals continue to be stable satting 90-100% on room air nonlabored respirations called her OBGYN Dr. Herbert to discuss lab results and patient's presentation and exam he feels she is also going to go home, follow up as scheduled she can finish the steroid pack as he ordered. Patient given strict return precautions if she develops any chest pain difficulty breathing or shortness of breath as always she may return to the ER for further evaluation. Medical Records Medical records reviewed: Yes I reviewed the external patient's medical records. Vital Signs Vital Signs: Vital Signs Temperature 36.8 C 12/15/24 09:08 Pulse Rate 89 12/15/24 09:08 Respiratory Rate 20 12/15/24 09:08 Blood Pressure 148/88 H 12/15/24 09:08 Pulse Oximetry 98 12/15/24 09:08 Oxygen Delivery Room Air 12/15/24 09:08 Temperature 36.8 C 12/15/24 09:08 Pulse Rate 89 12/15/24 09:08 Respiratory Rate 20 12/15/24 09:08 Blood Pressure 148/88 H 12/15/24 09:08 Pulse Oximetry 98 12/15/24 09:08 Oxygen Delivery Room Air 12/15/24 11:12 Vitals reviewed by me Lab Data Lab results reviewed: Yes I reviewed the patient's lab results. 12/15/24 10:55 12/15/24 10:55 Labs: Lab Results 12/15/24 Range/Units 10:55 WBC 14.0 H (4.5-10.0) K/mm3 RBC 4.70 (4.2-5.4) M/mm3 Hgb 14.5 (12.0-15.0) g/dL Hct 43.5 (37.0-47.0) % MCV 92.6 (80-100) fl MCH 30.9 (26-34) pg MCHC 33.3 (32-36) g/dl RDW 12.2 (11.5-14.5) % Plt Count 232 (150-375) k/mm3 MPV 11.7 H (7.4-10.4) fl Immature Gran % (Auto) 0.4 (0-0.5) % Neut % (Auto) 72.9 (45.5-73.1) % Lymph % (Auto) 17.5 L (18.3-44.2) % [place] % (Auto) 7.6 (2.6-8.5) % Eos % (Auto) 1.2 (0-4.4) % Baso % (Auto) 0.4 (0.2-1.2) % Lymph # (Auto) 2.45 (0.9-3.2) K/mm3 [place] # (Auto) 1.1 H (0.1-0.6) K/mm3 Eos # (Auto) 0.2 (0-0.3) K/mm3 Baso # (Auto) 0.1 (0.0-0.1) K/mm3 Abs Immat Gran (auto) 0.05 H (0.00-0.031) K/mm3 Absolute Neuts (auto) 10.2 H (1.3-6.7) K/mm3 Absolute Nucleated RBC 0.000 (0.0-0.012) K/mm3 Nucleated RBC % 0.0 (0.0-0.2) % Sodium 137 (137-145) mmol/L Potassium 3.8 (3.4-5.0) mmol/L Chloride 106 (98-107) mmol/L Carbon Dioxide 17 L (22-30) mmol/L Anion Gap 14 H (4-12) mmol/L BUN 8 (7-17) mg/dL Creatinine 0.42 L (0.7-1.0) mg/dL Estim Creat Clear Calc Not Reportable Estimated GFR > 60 (59 - ) Glucose 90 (65-110) mg/dL Calcium 8.7 (8.4-10.2) mg/dL Total Bilirubin 0.4 (0.2-1.3) mg/dL AST 15 (14-36) U/L ALT 17 (6-35) U/L Alkaline Phosphatase 76 (38-126) U/L Total Protein 8.0 (6.3-8.2) g/dL Albumin 4.2 (3.5-5.1) g/dL Urine Color Yellow (Yellow) Urine Appearance Clear (Clear) Urine pH 6.0 (5.0-9.0) Ur Specific [place] 1.011 (1.001-1.035) Urine Protein Negative (Negative) mg/dL Urine Glucose (UA) Negative (Negative) mg/dL Urine Ketones Negative (Negative) mg/dL Ur Blood (Man) Negative (Negative) Urine Nitrate Negative (Negative) Urine Bilirubin Negative (Negative) Urine Urobilinogen 0.2 (<2.0) mg/dL Leukocyte Esterase Rfl Negative (Negative) GEOVANNA/UL Influenza A (RT-PCR) Negative (Negative) Influenza B (RT-PCR) Negative (Negative) RSV (RT-PCR) Negative (Negative) SARS-CoV-2 RNA (RT-PCR) Negative (Negative) Discharge Plan Discharge Clinical Impression: Viral syndrome Cough Qualifiers: Cough type: unspecified Qualified Code(s): R05.9 - Cough, unspecified Patient Disposition: Home, Self-Care Condition: Stable Instructions: Antibiotic Form Additional Instructions: Continue to push oral hydration and finish the steroids as previously ordered, get plenty of rest you may try nasal spray and use a humidifier for congestion as needed Follow up with your PCP in 1 week Follow up with Dr. Seven Crocker as scheduled IF you develop any worsening symptoms such as difficulty breathing chest pain or have any other concerns as always he may return to the ER. Patient Language: Burmese Prescriptions: No Action hydrocodone-acetaminophen 5-325 mg tablet 1 tablet PO Q4H PRN (Reason: pain) Qty: 20 0RF Follow-up/Referrals: Sabas,Misael Dela Cruz MD [Primary Care Provider] - 1 Week Time of Disposition: 12:38
[2024-12-15 11:06] LABS: Basophils Absolute Auto 0.1 K/mm3 (0.0-0.1); Basophils Percent Auto 0.4 % (0.2-1.2); Eosinophils Absolute Auto 0.2 K/mm3 (0-0.3); Eosinophils Percent Auto 1.2 % (0-4.4); Hematocrit 43.5 % (37.0-47.0); Hemoglobin 14.5 g/dL (12.0-15.0); Immature Granulocyte Absolute 0.05 K/mm3 (0.00-0.031); Immature Granulocyte Percent A 0.4 % (0-0.5); Lymphocytes Absolute Auto 2.45 K/mm3 (0.9-3.2); Lymphocytes Percent Auto 17.5 % (18.3-44.2); Mean Corpuscular HGB Conc 33.3 g/dl (32-36); Mean Corpuscular Hemoglobin 30.9 pg (26-34); Mean Corpuscular Volume 92.6 fl (80-100); Mean Platelet Volume 11.7 fl (7.4-10.4); Monocytes Absolute Auto 1.1 K/mm3 (0.1-0.6); Monocytes Percent Auto 7.6 % (2.6-8.5); Neutrophils Absolute Auto 10.2 K/mm3 (1.3-6.7); Neutrophils Percent Auto 72.9 % (45.5-73.1); Platelet Count Result 232 k/mm3 (150-375); Red Cell Distribution Width 12.2 % (11.5-14.5)
[2024-12-15 11:08] LABS: Add Urine Microscopic? NO; Appearance Urine Clear (Clear); Bilirubin Urine Negative (Negative); Blood Urine Negative (Negative); Color Urine Yellow (Yellow); Glucose Urine UA Negative (Negative); Ketones Urine Negative (Negative); Leukocyte Esterase Ur Negative LEU/UL (Negative); Nitrate Urine Negative (Negative); Protein Urine Negative (Negative); Specific Grav Ur 1.011 (1.001-1.035); Urobilinogen Urine 0.2 mg/dL (<2.0)
[2024-12-15] MEDS: ACETAMINOPHEN 500 MG TABLET 1000 MG PO (11:16)
[2024-12-15 11:19] LABS: Alanine Aminotransferase 17 U/L (6-35); Albumin Level 4.2 g/dL (3.5-5.1); Alkaline Phosphatase 76 U/L (38-126); Anion Gap 14 mmol/L (4-12); Aspartate Amino Transferase 15 U/L (14-36); Bilirubin,Total 0.4 mg/dL (0.2-1.3); Blood Urea Nitrogen 8 mg/dL (7-17); Calcium 8.7 mg/dL (8.4-10.2); Carbon Dioxide 17 mmol/L (22-30); Chloride 106 mmol/L (98-107); Estimated Glomerular Filt Rate > 60; Glucose 90 mg/dL (65-110); Potassium 3.8 mmol/L (3.4-5.0); Sodium 137 mmol/L (137-145)
[2024-12-15 11:30] VITALS: BP 134/80; PULSE 82; RESP 16; TEMP 36.6; O2SAT 98
--- OUTSIDE RECORDS SUMMARY | 2024-12-15 11:34 | XMS_ITS | CONTINUITY OF CARE DOCUMENT ---
Author Name kristan, kristan Address Unknown Organization [facility] Address [address] [facility] [address] [place] [address] Phone [phone] Care Team Providers Care Batch Unit Treater Name Role Phone Yoseph Newberry MD Unavailable [phone] ANG PATEL MD Unavailable [phone] SHIRLEY WING MD Unavailable Unavailable PROBLEMS Condition Status Date Provider Notes Iron deficiency active Lc Redmond RN Obesity active Yoseph Newberry MD Chest pain-type to be determined;NEG CXR completed - Yoseph Newberry MD Cholecystectomy active Yoseph Newberry MD 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;neg echo 15 active Yoseph Newberry MD Sinus tachycardia; active Yoseph Newberry MD Chest pain, atypical active Yoseph Daniels Vitamin D deficiency; active Yoseph Newberry MD B12 deficiency; active Yoseph Newberry MD Dyspnea on exertion completed - Yoseph Newberry MD Thyroid nodule active Yoseph Newberry MD Health maintenance examination active Kat Newberry MD hx of Palpitations completed - Yoseph Newberry MD Obstructive sleep apnea active Yoseph akers MD ENCOUNTERS Date Type Provider Location Encounter Diag nosis - In-person encounter Office Visit Yoseph Newberry MD [facility] ObesityVitamin D deficiency;B12 deficiency;Obstructive sleep apneahx [...] O'González Body Mass Index (Ratio) 34.06 kg/m2 [place] richards O'González weight E&M 163 [lb_av] Adelita O'González Body Mass Index (Ratio) 33.23 kg/m2 [place] richards O'González blood pressure, diastolic 70 mm[Hg] [...] Newberry MD smoking status Never smoker Adriana Quintero [...] Payer name Policy type / Coverage type [place] red republican ID HEATH MEDICAID Medicaid [id number] ADVANCE DIRECTIVES Name Date DISCUSSED - NO [...] Supraventricular ectopics N o diary submitted. C [employer] was the Primary channel during the [...] ER FU: O rders: C omplete Echo (CPT-43670) H EMOGLOBIN A1c (496) V ITAMIN D, 25-HYDROXY, LC/MS/MS (91387) V ITAMIN B12 (677) Yoseph Newberry MD Date Name PROBNP, N TERMINAL THYROID PANEL WITH T SH, 3RD GENERATION Sleep Study Home CBC (INCLUDES DIFF/P LT) IRON AND TOTAL IRON BINDING CAPACITY FERRITIN Complete Echo Holter Monitor 24 Hr VITAMIN D, 25-HYDROX Y, LC/MS/MS VITAMIN B12 Sleep Study Home Holter Monitor 24 Hr DLCO Order - [id number] FRC Order - [id number] FVC Order - [id number] Full PFT VITAMIN B12 VITAMIN D, 25-HYDROX Y, LC/MS/MS HEMOGLOBIN A1c THYROID PANEL WITH T SH, 3RD GENERATION Holter Monitor 24 Hr STR - Routine Complete Echo HISTORY OF PROCEDURES Procedure Date Procedure Name Provider Procedure Notes S tatus ZIO Holter Hookup Yoseph Newberry MD c ompleted EKG Yoseph Newberry MD complete d SNOMED-CT: 451801410 [id number] Current Medications Documented Yoseph Newberry MD completed SNOMED-CT: 205398791 238858 Current Medications Documented Yoseph Newberry MD completed Holter, 24 or 48 Yoseph Newberry MD co mpleted EKG Yoseph Newberry MD complete d EKG Yoseph Newberry MD complete d
--- OUTSIDE RECORDS SUMMARY | 2024-12-15 11:35 | XMS_ITS | Clinical Summary ---
Author Organization [facility] [address] [place] [address] Care Team Providers Care Cloud Operations Engineer Name Role Phone Misael Obregon MD Primary Care Provider [phone] Allergies Active Allergy Reactions Criticality Noted Date Comments Amoxicillin Medications No known medications Active Problems Problem Noted Date Diagnosed Date Thyroid nodule 12/25/2022 Assessment & Plan (12/25/2022 5:30 PM TUGBOAT DISPATCHER): I looked at Amber's thyroid under our [...] on file Legal Sex Female 8:45 PM TUGBOAT DISPATCHER Gender Identity Not on file Sexual Orientation Not on file Obstetrics History Last Filed Vital Signs Vital Sign Reading Time Taken Comments Blood Pressure 116/80 12/25/2022 12:17 PM TUGBOAT DISPATCHER Pulse 88 11/30/2015 3:11 PM TUGBOAT DISPATCHER Temperature - - Respiratory Rate 12 12/25/2022 12:17 PM TUGBOAT DISPATCHER Oxygen Saturation - - Inhaled Oxygen Concentration - - Weight 82.2 kg (181 lb 3.2 oz) 12/28/2022 3:17 P M TUGBOAT DISPATCHER Height 149.9 cm (4' 11 ) 12/28/2022 3:17 PM TUGBOAT DISPATCHER Body Mass Index 36.6 12/28/2022 3:17 PM TUGBOAT DISPATCHER Plan of Treatment Health Maintenance Due Date [...] patient's age to complete this topic Insurance [employer] OOS BLUE ACCESS OOS ANTH TRADITIONAL AL KOEHLER [id number] Care Teams Cloud Operations Engineer Relationship Specialty Start Date End Date Misael Obregon MD PCP - General Internal Medicine 02/06/19
--- OUTSIDE RECORDS SUMMARY | 2024-12-15 11:35 | XMS_ITS | Referral Summary ---
Author Organization [facility] [address] [place] [address] Care Team Providers Care Hotel Concierge Name Role Phone Misael Obregon MD Primary Care Provider [phone] Allergies Active Allergy Reactions Criticality Noted Date Comments Amoxicillin Medications No known medications Active Problems Problem Noted Date Diagnosed Date Thyroid nodule 12/25/2022 Assessment & Plan (12/25/2022 5:30 PM OIL TRANSPORT DRIVER): I looked at Amber's thyroid under our [...] on file Legal Sex Female 8:45 PM OIL TRANSPORT DRIVER Gender Identity Not on file Sexual Orientation Not on file Last Filed Vital Signs Vital Sign Reading Time Taken Comments Blood Pressure 116/80 12/25/2022 12:17 PM OIL TRANSPORT DRIVER Pulse 88 11/30/2015 3:11 PM OIL TRANSPORT DRIVER Temperature - - Respiratory Rate 12 12/25/2022 12:17 PM OIL TRANSPORT DRIVER Oxygen Saturation - - Inhaled Oxygen Concentration - - Weight 82.2 kg (181 lb 3.2 oz) 12/28/2022 3:17 P M OIL TRANSPORT DRIVER Height 149.9 cm (4' 11 ) 12/28/2022 3:17 PM OIL TRANSPORT DRIVER Body Mass Index 36.6 12/28/2022 3:17 PM OIL TRANSPORT DRIVER Plan of Treatment Not on file Insurance [employer] OOS [employer] TRADITIONAL Care Teams Hotel Concierge Relationship Specialty Start Date End Date Misael Obregon MD PCP - General Internal Medicine 02/06/19
[2024-12-15 11:41] LABS: Influenza A QL RT-PCR Negative (Negative); Influenza B QL RT-PCR Negative (Negative); RSV RNA, RT-PCR Negative (Negative); SARS-CoV-2 RNA PCR Negative (Negative)
[2024-12-15 12:46] VITALS: BP 136/78; PULSE 84; RESP 16; TEMP 36.6; O2SAT 98
== END 2024-12-15 12:46 | disposition home or self-care (01) ==
PROVIDERS: Emergency Provider Nurse Practitioner Family; PCP Internal Medicine
DX: O98.511 Other viral diseases complicating pregnancy, first trimester (principal); R05.9 Cough, unspecified; B34.9 Viral infection, unspecified; Z20.822 Contact with and (suspected) exposure to COVID-19; Z3A.11 11 weeks gestation of pregnancy; O99.331 Smoking (tobacco) complicating pregnancy, first trimester; F17.290 Nicotine dependence, other tobacco product, uncomplicated
CPT/HCPCS: 36415; 80053; 81003; 85025; 87637; 96361; 96374; 99284; A9270

== ENCOUNTER 2025-04-21 16:56 | Observation (INO) | payer OTHER, SELFPAY ==
--- OUTSIDE RECORDS SUMMARY | 2025-04-21 17:02 | XMS_ITS | CONTINUITY OF CARE DOCUMENT ---
Author Name kristan, kristan Address Unknown Organization [facility] Address [address] [facility] [address] [place] [address] Phone [phone] Care Team Providers Care Manager Welding Name Role Phone Yoseph Newberry MD Unavailable [...] In-person encounter Office Visit Yoseph Newberry MD [place] [facility] ObesityVitamin D deficiency;B12 deficiency;Obstructive sleep apneahx [...] O'González Body Mass Index (Ratio) 34.06 kg/m2 [place] richards O'González weight E&M 163 [lb_av] Adelita O'González Body Mass Index (Ratio) 33.23 kg/m2 [place] richards O'González blood pressure, diastolic 70 mm[Hg] [...] Payer name Policy type / Coverage type [place] red alliance party ID HEATH MEDICAID Medicaid [id number] ADVANCE DIRECTIVES Name Date DISCUSSED - NO [...] Supraventricular ectopics N o diary submitted. C [employer] 2 was the Primary channel during the [...] ER FU: O rders: C omplete Echo (CPT-36512) H EMOGLOBIN A1c (496) V ITAMIN D, 25-HYDROXY, LC/MS/MS (49508) V ITAMIN B12 (937) Yoseph Newberry MD Date Name PROBNP, N TERMINAL THYROID PANEL WITH T SH, 3RD GENERATION Sleep Study Home CBC (INCLUDES DIFF/P LT) IRON AND TOTAL IRON BINDING CAPACITY FERRITIN Complete Echo Holter Monitor 24 Hr VITAMIN D, 25-HYDROX Y, LC/MS/MS VITAMIN B12 Sleep Study Home Holter Monitor 24 Hr DLCO Order - [id number] FRC Order - [id number] FVC Order - [id number] Full PFT VITAMIN B12 VITAMIN D, 25-HYDROX Y, LC/MS/MS HEMOGLOBIN A1c THYROID PANEL WITH T SH, 3RD GENERATION Holter Monitor 24 Hr STR - Routine Complete Echo HISTORY OF PROCEDURES Procedure Date Procedure Name Provider Procedure Notes S tatus ZIO Holter Hookup Yoseph Newberry MD c ompleted EKG Yoseph Newberry MD complete d SNOMED-CT: [id number] [id number] Current Medications Documented Yoseph Newberry MD completed SNOMED-CT: 642810197 572277 Current Medications Documented Yoseph Newberry MD completed Holter, 24 or 48 Yoseph Newberry MD co mpleted EKG Yoseph Newberry MD complete d EKG Yoseph Newberry MD complete d
--- OUTSIDE RECORDS SUMMARY | 2025-04-21 17:02 | XMS_ITS | Continuity of Care Document ---
Author Organization [facility] Address [address] [place] [address] Phone Care Team Providers Care Senior Rd Engineer Name Role Phone Gabriela Hernandez Unavailable Unavailable [...] INITIAL ASSESSMENT AND INTERVENTION, INDIVIDUAL, EACH 15 RI BODY MASS INDEX DOCD FALL PLAN OF CARE DOC'D URINE INCON PLAN DOC'D PRES/ABSN URINE INCON ASSESS OFFICE [id number] BODY MASS INDEX DOCD SYST BP GE [...] Diagnoses Date Provider Providers Copied on Encounter [email or web address], [address], [place], [place], [address] , tel: [phone] [facility] No Information 4 Devi Ochoa. [address], [address], [place], [place], [address] , . tel: [phone] [email or web address], [address], [place], [place], [address] , tel: [phone] Care Management Anxiety 3 Devi Ochoa. [address], [address], [place], [place], [address] , [place]. tel: [phone] PREVENTATIVE -NEW: 18-39 [email or web address], [address], [place], [place], [address] , tel: [phone] [facility] preventive exam (chief complaint)C hronic Conditions [...] right side of neck 3 Devi Ochoa. [address], [address], [place], [place], [address] , . tel: [phone] Referring Provider: Gabriela Quinonez, [address], [place], [address] . tel:[phone] [email or web address], [address], [place], [place], [address] , tel: [phone] [facility] Dietary counseling and surveillanceObesit y (BMI 30-39.9)Body mass index (BMI) 36.0-36.9, adult 3 9 Fermín Maciel. [address] [place] [address], [id number] , . tel: [phone] Referring Provider: Misael Obregon, [address] [place] [address] [address] , [place], [address] . tel:[phone] [email or web address], [address], [place], [place], [address] , tel: [phone] [facility] Obesity (BMI 30-39.9)Dietary counseling and surveillanceBody mass index (BMI) 36.0-36.9, adult 9 Fermín Maciel. [address] [place] [address], [place], [place], [address] , . tel: [phone] Referring Provider: Misael Obregon, [address] [place] [address] [address], [place], [address] . tel:[phone] OFFICE [id number] PANDED [email or web address], [address], [place], [place], [address] , tel: [phone] [facility] Chronic Conditions (chief complaint) Obesity (BMI 30-39.9)Thyroid disorderFatigue, unspecified type 9 Sabas Douglas. [address] [place] [address], [address], [place], [place], [address] , [place]. tel: [phone] Referring Provider: Misael Obregon [address] [place] [address] [address], [place], [address] . tel:[phone] [facility], [address], [place], [place], [address] , tel: [phone] [facility] Chronic nonintractable headache, unspecified headache typeDizzinessVisio n changes 9 Sabas Douglas. [address] [place] [address], [address] , [place], [place], [address] , . tel: [phone] [facility], [address], [place], [place], [address] , tel: [phone] [facility] dizziness and headaches (chief complaint)C hronic Conditions (chief complaint) Body mass index (BMI) 35.0-35.9, adultChronic nonintractable headache, unspecified headache typeDizziness Devi Ochoa. [address] [place] [address], [address] , [place], [place], [address] , . tel: [phone] Referring Provider: Misael Obregon, [address] [place] [address], [place], [address] . tel:[phone] [email or web address], [address], [place], [place], [address] , tel: [phone] [facility] Thyroid disorderObesity (BMI 30-39.9)Encounter for general health examination 9 Sabas Douglas. [address] [place] [address], [address] , [place], [place], [address] , . tel: [phone] Referring Provider: Misael Obregon, [address] [place] [address] [address] , [place], [address] . tel:[phone] Family History Family Member Type Diagnosis Age At Onset Mother Problem (finding) depression Mother Problem (finding) Allergies Mother Problem (finding) osteoporosis Mother Problem (finding) attention deficit hyper activity disorder Payers Payer name Insurance type Covered republican ID Sara duenas(s) [facility] ACCESS BL [id number] Social History Type Description Quantity Date Captured [...] , guidance, and counseling completed Referral Ordered: [facility] [place] (related to Anxiety) ordered Referral Referred To: [id number] Ordered: Referrals: Counseling/mental health services. Location: [facility]. Evaluate and treat - Level 2 ordered [...] her in 2021. 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 She states she had 2 COVID vaccines, does not have card with her. She wants to have hepatitis B vaccine- advised she can have at [facility] or [facility] or [facility]. Chronic Conditions *See Chronic Conditions HPI [...] had imaging- beginning when she lived in [place] and then saw a neurologist at [facility]. She states at one time she had [...] has not been to the neurologist at [facility] since about 2012. She states she notices [...] her in 2021. 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 She states she had 2 COVID vaccines, does not have card with her. She wants to have hepatitis B vaccine- advised she can have at [facility] or [facility] or [facility] Related to Encounter for general adult [...] [place] of thyroid and refer back to airport maintenance chief. Related to Thyroid disorder Continue to work [...]
--- OUTSIDE RECORDS SUMMARY | 2025-04-21 17:02 | XMS_ITS | Data Portability ---
Author Organization [facility] Address [address] [place] [address] Assessment No assessment recorded. Plan of Treatment Reminders Order Date Submit Date Provider Last Modified By Organization Details Last Modified Time Details Appointments None recorded. Lab urinalysis, complete 2014 016 asavala [facility], [address], [address], [place], [address], 6 09:40:21 lipid panel, serum 2014 016 asavala [facility], [address], [address], [place], [address], 6 09:40:52 HbA1c (hemoglobin A1c), blood 2014 016 asavala [facility], [address], [address], [place], [address], 6 09:50:36 CBC w/ auto diff 2014 016 asavala [facility], [address], [address], [place], [address], 6 09:40:52 CMP, serum or plasma 2014 016 asavala [facility], [address], [address], [place], [address], 6 09:40:52 thyroid panel, serum 2014 016 asavala [facility], [address], [address], [place], [address], 6 09:50:36 thyroid panel, serum 2014 015 asavala [facility], [address], [address], , [place], [address], 5 10:12:02 urinalysis, complete 2014 015 GRACIELA [facility], [address], [address], , [place], [address], 5 04:20:55 HbA1c (hemoglobin A1c), blood 2014 015 jalyna [facility], [address], [address], , [place], [address], 5 14:17:05 CBC w/ auto diff 2014 015 GRACIELA [facility], [address], [address], [place], [address], 5 04:20:55 CMP, serum or plasma 2014 015 GRACIELA [facility], [address], [address], , [place], [address], 5 04:20:56 lipid panel, serum 2014 015 GRACIELA [facility], [address], [address], [place], [address], 5 04:20:57 thyroid panel, serum 2014 015 GRACIELA [facility], [address], [address], , [place], [address], 5 04:20:59 Referral ENT referral - Complex thyroid cyst, normal TFT 2014 015 [email or web address] Jonathan Patten, [address] [place], [address], 5 16:48:11 endocrinolo gy referral - Tachycardia with an elevated free T3, normal free T3 and normal TSH 10/21/2014[facility] [place], [address] [place], [address], 5 12:12:10 Procedures None recorded. Surgeries None recorded. Imaging ultrasound, thyroid - Elevated Total free T3 2014 015 [facility] ([facility]), [address] [place] [address], [address], 5 17:41:08 Medication Orders None recorded. Patient TargetsNo targets recorded. Patient Instructions Encounter Date Encounter Id Patient Instructions Last Modified By Organization Details Last Modified Time 09/21/2015 [id number] When You Want to Lose Weight: Care Instructions [facility] Not available 09/21/2015 16:59:15 Reason for Referral [...] resul t No observ ation record ed. [facility] (Imaging) [address], [place], [address], 02/04/2015 16:26:44 11/21/19 16 11/08/2015 imagi ng/di agnos tic resul t No observ ation record ed. [facility] [address] , [place], [address], 11/21/2015 14:36:31 03/20/20 17 cardi ac monit or No observ ation record ed. [facility] [address], [place], [address], 03/20/2017 13:57:59 03/29/20 17 03/29/2017 trans -thor acic echoc ardio gram (TTE) (PROC ) No observ ation record ed. [facility] [address], [place], [address], 03/30/2017 08:22:49 04/03/20 17 04/03/2017 home sleep testi ng* No observ ation record ed. [facility] [address], [place], [address], 04/04/2017 06:36:43 04/17/20 24 04/17/2024 CT, abdom en + pelvi s, w/ contr ast No observ ation record ed. [place] [address], [place], [address], 04/20/2024 09:19:12 04/17/20 24 04/17/2024 US, trans vagin al No observ ation record ed. [place] [id number], [place], [address], 04/20/2024 09:19:40 Result Notes None recorded. Problems Name Problem SNOMED Code Status Onset Date Resolution Date Notes Provider Name and Address Organization Details Recorded Time Tachycardia 8615443 Active Oswald Grant MD Attn: Shena case,[address] [facility], [place], [address], [facility] 5 15:20:28 Thyroid hormone tests outside reference range 677113287 Active Oswald Grant MD Attn: Shena case,[address] [facility], [place], [place], [address] [place] [address] 2, [place] - [facility] 5 16:17:46 Cyst of thyroid 45889941 Active Oswald Grant MD Attn: Shena case,[address] [facility], [place], [place], [address] [place] [address], [place] - [facility] 5 16:17:46 Overweight 887888968 Active Oswald Grant MD Attn: Shena case,[address] [facility], [place], [address], [place] - [facility] 5 16:17:46 Notes:THyroid 19 y/o WF wh o I last saw in this office 09/22/2012, she was seen in the ER with CP and then by the catheter builder, Dr. Newberry who noted that her T3 was low? or high? 10/30/14. She was advised that she needed to be seen by an passenger solicitor. However she was told that she needs to be seen here first before she can be referred, she also follows up with the psychiatrist HARSHA Mishra for her depression. Problem Notes None recorded. Procedures Surgical History Date Name Laterality Status Provider Name and Address Organization Details Recorded Time Cholecystectomy completed February Rik dolan [facility] 12/20/2014 15:00:35 Imaging Results None recorded. Procedure Notes None recorded. Medical Equipment None Reported. Allergies Allergen ID Allergen Name Allergen Category Reaction Reaction Severity Criticality Documentation Date Start Date Code Code System Note Provider Name and Address Organization Details Recorded Time amoxicill in medicatio n Not available Not available Not available 12/20/2014 723 RxNorm February YOON Weber null, [place] - [facility] 5 15:00:35 Medications Name Sig Start Date Stop Date [...] Vitals Date Recorded Respiratory rate Body weight Heart rate Body mass index (BMI) Body height Body temperature Systolic blood pressure Diastolic blood pressure Provider Name and Address Organization Details Last Updated DateTime 5 20 /min 72332.5 9446 g 84 /min 0 kg/m2 66588.2 8 cm 99.2 [degF] 120 mm[Hg] 70 mm[Hg] February Tia [facility] 15:00:35 Date Recorded Respiratory rate Body weight Heart rate Body mass index (BMI) Body height Body temperature Systolic blood pressure Diastolic blood pressure Provider Name and Address Organization Details Last Updated DateTime 5 20 /min 54357.7 792 g 78 /min 32.3 kg/m2 149.86 cm 99.1 [degF] 118 mm[Hg] 72 mm[Hg] February Tia [facility] 5 16:22:32 Date Recorded Respiratory rate Body weight Body height Body mass index (BMI) Heart rate Body temperature Systolic blood pressure Diastolic blood pressure Provider Name and Address Organization Details Last Updated DateTime 5 20 /min 90930.9 6394 g 149.86 cm 32.7 kg/m2 80 /min 98 [degF] 122 mm[Hg] 72 mm[Hg] February Tia [facility] 5 15:59:51 Social History Question Answer Notes LastModified by Organizat ion Details LastModified Time Tobacco Smoking Status Never Smoker February YOON Weber [facility] 12/20/2014 15:00:35 Do You Have An Advance Directive? No Information not available 12/20/2014 What Is Your Level Of Caffeine Consumption? None Information not available 12/20/2014 How Much Tobacco Do You Chew? None Information not available 12/20/2014 Education 12 Information [...] LastModified by Organizat ion Details LastModified Time What is your level of alcohol consumption? None Information not available 12/20/2014 Are you currently employed? Yes Information not available 12/20/2014 Are you able to care for yourself? [...] 15:00:35 Medical History Condition Response Anxiety/Depression Y High Cholesterol Y Headaches Y Thyroid Problems Y Depression Y Gynecological HistoryNo gynecological history recorded. Obstetrics History GPAL:G 0 P 0 0 0 0 Past Encounters Encounter ID Performer Location Encounter Start Date Encounter Closed Date Diagnosis/Indication Diagnosis SNOMED-CT Code Diagnosis ICD10 Code Diagnosis Note [id number] Oswlad Grant MD [facility] (Adult Med) [address] [place] [phone] 12/20/2014 14:27:48 12/20/2014 15:39:18 General examination of patient 109098097 Tachycardia 0471492 Symp tomati c tachycardi a with normal free T3, elevated free T4 and a normal TSH 10/21/14, now on Propranolo l 10 mg po daily Thyroid ho rmone tests outside reference range 797067767 Abnormal TFTs, with a normal free T3, elevated free T4 and a normal TSH 10/21/14. Recheck labs, obtain thyroid ultrasound and have her seen by the endocrinol ogist. [id number] MD [facility] (Adult Med) [address] [place] [address] 02/04/2015 15:55:55 02/04/2015 16:44:58 Thyroid hormone tests outside reference range 607100408 Repeat labs done 12/22/2014 were reviewed with the patient, they are all normal and I think one can safely monitor this closely in 6 months. Cyst of thyroid 21933117 complex cyst of the thyroid, ENT evaluation [id number] [facility] [address] [place] [phone] 09/21/2015 15:46:48 09/21/2015 17:55:43 Thyroid hormone tests outside reference range 396239354 R94.6 Repeat labs done 07/27/2015 were reviewed with the patient, they are all normal and I think one can safely monitor this closely. She saw both te endocrinol ogist, Dr. Chatman and the cardiologi st, Dr. Newberry. Cyst of thyroid 66074609 E04.1 complex cyst of the thyroid, endocrinol ogy evaluation was done, the impression was that it is a cyst. Overweight 076040584 E66 .3 Health Concerns Section Related Observation LastModified by Organization Detai ls LastModified Time None Recorded Concern Status LastModified by Organization Details LastModified Time None Recorded Advance Directives Directive N: Payers Encounter Date Sequence Insurance Name Policy Number Policy Corbin Covered Member ID Corbin Member ID Guarantor Name 12/20/2014 1 [facility] (MEDICAID HMO) [id number] Amber Chio [id number] Amber Chio 02/04/2015 1 [facility] (MEDICAID HMO) [id number] Amber Chio [id number] Amber Barroso 09/21/2015 1 [facility] (MEDICAID HMO) [id number] Amber Barroso [id number] Amber Barroso OBGyn Episode No OBEpisode recorded.
--- OUTSIDE RECORDS SUMMARY | 2025-04-21 17:02 | XMS_ITS | Clinical Summary ---
Author Organization [facility] [address] [place] [address] Care Team Providers Care Vendette Name Role Phone Misael Obregon MD Primary Care Provider [phone] Allergies Active Allergy Reactions Criticality Noted Date Comments Amoxicillin Medications No known medications Active Problems Problem Noted Date Diagnosed Date Thyroid nodule 12/25/2022 Assessment & Plan (12/25/2022 5:30 PM VEGETABLE HARVEST MACHINE OPERATOR): I looked at Amber's thyroid under our [...] on file Legal Sex Female 8:45 PM VEGETABLE HARVEST MACHINE OPERATOR Gender Identity Not on file Sexual Orientation Not on file Obstetrics History Last Filed Vital Signs Vital Sign Reading Time Taken Comments Blood Pressure 116/80 12/25/2022 12:17 PM VEGETABLE HARVEST MACHINE OPERATOR Pulse 88 11/30/2015 3:11 PM VEGETABLE HARVEST MACHINE OPERATOR Temperature - - Respiratory Rate 12 12/25/2022 12:17 PM VEGETABLE HARVEST MACHINE OPERATOR Oxygen Saturation - - Inhaled Oxygen Concentration - - Weight 82.2 kg (181 lb 3.2 oz) 12/28/2022 3:17 P M VEGETABLE HARVEST MACHINE OPERATOR Height 149.9 cm (4' 11) 12/28/2022 3:17 PM VEGETABLE HARVEST MACHINE OPERATOR Body Mass Index 36.6 12/28/2022 3:17 PM VEGETABLE HARVEST MACHINE OPERATOR Plan of Treatment Health Maintenance Due Date Last Done Comments Cervical Cancer Screening 1993 Depression Screening 1993 Hepatitis C Screening 1993 DTaP/Tdap/Td Vaccine (4 - Tdap) 2004 06/12/1994, 05/01/1994, 03/05/1994 Varicella Vaccines (1 of 2 - 13+ 2-dose series) 2006 Hepatitis B Screening 2011 Regular Well Visit/Exam 18-64 2011 Covid-19 Vaccine (3 - 2023-2 5 season) 2024 03/09/2021, 02/16/2021 Influenza Vaccine (Season Ended) 2025 HPV Vaccines Aged Out No longer eligi ble based on patient's age to complete this topic Pneumococcal vaccine <65 Aged Out No longer eligible based on patient's age to complete this topic Insurance [employer] OOS BLUE ACCESS OOS ANTH TRADITIONAL [place] [id number] Care Teams Vendette Relationship Specialty Start Date End Date Misael Obregon MD PCP - General Internal Medicine 02/06/19
--- OUTSIDE RECORDS SUMMARY | 2025-04-21 17:02 | XMS_ITS | Referral Summary ---
Author Organization [facility] [address] [place] [address] Care Team Providers Care Licensed Pesticide Applicator Name Role Phone Misael Obregon MD Primary Care Provider [phone] Allergies Active Allergy Reactions Criticality Noted Date Comments Amoxicillin Medications No known medications Active Problems Problem Noted Date Diagnosed Date Thyroid nodule 12/25/2022 Assessment & Plan (12/25/2022 5:30 PM TUBE HEATER): I looked at Amber's thyroid under our [...] on file Legal Sex Female 8:45 PM TUBE HEATER Gender Identity Not on file Sexual Orientation Not on file Last Filed Vital Signs Vital Sign Reading Time Taken Comments Blood Pressure 116/80 12/25/2022 12:17 PM TUBE HEATER Pulse 88 11/30/2015 3:11 PM TUBE HEATER Temperature - - Respiratory Rate 12 12/25/2022 12:17 PM TUBE HEATER Oxygen Saturation - - Inhaled Oxygen Concentration - - Weight 82.2 kg (181 lb 3.2 oz) 12/28/2022 3:17 P M TUBE HEATER Height 149.9 cm (4' 11) 12/28/2022 3:17 PM TUBE HEATER Body Mass Index 36.6 12/28/2022 3:17 PM TUBE HEATER Plan of Treatment Not on file Insurance [employer] OOS [employer] TRADITIONAL Care Teams Licensed Pesticide Applicator Relationship Specialty Start Date End Date Misael Obregon MD PCP - General Internal Medicine 02/06/19
[2025-04-21 17:53] VITALS: BMI 44.5
[2025-04-21 17:55] VITALS: RESP 18; TEMP 36.9
[2025-04-21 17:56] VITALS: BP 125/72; PULSE 109
[2025-04-21 18:01] VITALS: BP 117/68; PULSE 107
--- NOTE | 2025-04-21 18:01 | OBADM ---
This patient, Amber Barroso, admitted to the OB room 117 for observation. Patient/family oriented to hospital policies and general routines including ID bracelet, bed and alarms, visiting hours, pain management, procedures, bathroom and other care routines, personal items, smoking policy, room service/diet, and visiting hours. Patient/Family are encouraged to report perceived risks to care and to ask questions if they do not understand what they are told or what they should do.
[2025-04-21 18:04] LABS: Add Urine Microscopic? NO; Appearance Urine Clear (Clear); Bilirubin Urine Negative (Negative); Blood Urine Negative (Negative); Color Urine Yellow (Yellow); Glucose Urine UA Negative (Negative); Ketones Urine Negative (Negative); Leukocyte Esterase Ur Negative LEU/UL (Negative); Nitrate Urine Negative (Negative); Protein Urine Negative (Negative); Specific Grav Ur 1.005 (1.001-1.035); Urobilinogen Urine 0.2 mg/dL (<2.0)
[2025-04-21 18:22] VITALS: BP 99/65; PULSE 107
[2025-04-21 18:41] VITALS: BP 108/57; PULSE 103
[2025-04-21 18:54] LABS: OBXCEM ROM Plus Negative (Negative)
--- NOTE | 2025-04-21 19:12 | PC.NURSE ---
1848- RN notified MD of patient arrival and patient complaints. RN notified MD of VS and FHT tracing as well as some uterine irritability. RN notified MD that patient is no longer having DFM, but is still noticing vaginal pressure. RN notified MD that the patient was give the marking button to kasia when she was feeling possible contractions and that when the patient marked them, they were only 10 seconds long and that abdomen was soft to palpation at the time of patient feeling the abdominal tightening. RN also notified MD of u/a results. MD gave orders to check the patient and if the patient is closed, she can be d/c to home on pelvic rest until seen in the office next.
--- NOTE | 2025-04-22 08:00 | P.PNOB_ITS ---
OB - Triage/Final Diagnosis Visit Information Date of evaluation: 05/20/25 Reason for evaluation: threatened labor Comments/Additional reasons for admission: I have assessed the risk for this patient, Amber Barroso, and determined that she would benefit from observation care. Evaluation Laboratory results: Laboratory Tests 04/21/25 04/21/25 17:55 17:56 Urine Color Yellow Urine Appearance Clear Urine pH 7.0 Ur Specific [place] 1.005 Urine Protein Negative Urine Glucose (UA) Negative Urine Ketones Negative Ur Blood (Man) Negative Urine Nitrate Negative Urine Bilirubin Negative Urine Urobilinogen 0.2 Leukocyte Esterase Rfl Negative Membranes Rupture Rom plus negative Vital signs: Vital Signs - 24 hr 04/21/25 17:53 04/21/25 17:55 04/21/25 17:56 Temperature 98.4 F Pulse Rate 109 H Respiratory Rate 18 Blood Pressure 125/72 Oxygen Delivery Room Air 04/21/25 18:01 04/21/25 18:22 04/21/25 18:41 Temperature Pulse Rate 107 H 107 H 103 H Respiratory Rate Blood Pressure 117/68 99/65 L 108/57 L Oxygen Delivery
== END 2025-04-21 19:03 | disposition home or self-care (01) ==
PROVIDERS: Admitting Provider Obstetrics & Gynecology; PCP Internal Medicine; Visit Provider Obstetrics & Gynecology
DX: O47.03 False labor before 37 completed weeks of gestation, third trimester (principal); Z3A.29 29 weeks gestation of pregnancy
CPT/HCPCS: 81003; 84112; G0378; G0379

== ENCOUNTER 2025-04-29 09:42 | Observation (INO) | payer OTHER, SELFPAY ==
[2025-04-29 10:22] LABS: Add Urine Microscopic? NO; Appearance Urine Clear (Clear); Bilirubin Urine Negative (Negative); Blood Urine Negative (Negative); Color Urine Yellow (Yellow); Glucose Urine UA Negative (Negative); Ketones Urine Negative (Negative); Leukocyte Esterase Ur Negative LEU/UL (Negative); Nitrate Urine Negative (Negative); Protein Urine Negative (Negative); Specific Grav Ur 1.009 (1.001-1.035); Urobilinogen Urine 0.2 mg/dL (<2.0)
--- OUTSIDE RECORDS SUMMARY | 2025-04-29 10:29 | XMS_ITS | Continuity of Care Document ---
Author Organization [facility] Address [address] [place] [address] Phone Care Team Providers Care Chuck Boner Name Role Phone Gabriela Hernandez Unavailable Unavailable [...] INITIAL ASSESSMENT AND INTERVENTION, INDIVIDUAL, EACH 15 SC BODY MASS INDEX DOCD FALL PLAN OF CARE DOC'D URINE INCON PLAN DOC'D PRES/ABSN URINE INCON ASSESS OFFICE [id number] BODY MASS INDEX DOCD SYST BP GE [...] Diagnoses Date Provider Providers Copied on Encounter [facility], [address], [place], [place], [id number] , tel: [phone] [facility] No Information 4 Devi Ochoa. [address], [address], [place], [place], [address] , . tel: [phone] [facility], [address], [place], [place], [address] , tel: [phone] Care Management Anxiety 3 Devi Ochoa. [address], [address], [place], [place], [address] , [place]. tel: [phone] PREVENTATIVE -NEW: 18-39 [employer], [address], [place], [place], [address] , tel: [phone] [facility] preventive exam (chief complaint)C hronic Conditions (chief [...] right side of neck 3 Devi Ochoa. [address], [address], [place], [place], [address] , . tel: [phone] Referring Provider: Gabriela Quinonez, [address], [place], [address] . tel:[phone] [facility], [address], [place], [place], [address] , tel: [phone] [facility] Dietary counseling and surveillanceObesit y (BMI 30-39.9)Body mass index (BMI) 36.0-36.9, adult 3 9 Fermín Maciel. [address] [place] [address], [id number] , . tel: [phone] Referring Provider: Misael Obregon, [address] [place] [address] [address] , [place], [address] . tel:[phone] [facility], [address], [place], [place], [address] , tel: [phone] [facility] Obesity (BMI 30-39.9)Dietary counseling and surveillanceBody mass index (BMI) 36.0-36.9, adult 9 Fermín Maciel. [address] [place] [address], [place], [place], [id number] , . tel: [phone] Referring Provider: Misael Obregon, [address] [place] [address] [address], [place], [address] . tel:[phone] OFFICE POEMI-GOB-QG PANDED [employer] [facility], [address], [place], [place], [address] , tel: [phone] [facility] Chronic Conditions (chief complaint) Obesity (BMI 30-39.9)Thyroid disorderFatigue, unspecified type 9 Sabas Douglas. [address] [place] [address], [address], [place], [place], [id number] , [place]. tel: [phone] Referring Provider: Misael Obregon [address] [place] [address] [address], [place], [address] . tel:[phone] [facility], [address], [place], [place], [address] , tel: [phone] [facility] Chronic nonintractable headache, unspecified headache typeDizzinessVisio n changes 9 Sabas Douglas. [address] [place] [address], [address] , [place], [place], [address] , . tel: [phone] [facility], [address], [place], [place], [id number] , tel: [phone] [facility] dizziness and headaches (chief complaint)C hronic Conditions (chief complaint) Body mass index (BMI) 35.0-35.9, adultChronic nonintractable headache, unspecified headache typeDizziness Friendshipsiomara Ochoa. [address] [place] [address], [address] , [place], [place], [address] , . tel: [phone] Referring Provider: Misael Obregon, [address] [place] [address], [place], [address] . tel:[phone] [facility] [facility], [address], [place], [place], [address] , tel: [phone] [facility] Thyroid disorderObesity (BMI 30-39.9)Encounter for general health examination 9 Sabas Douglas. [address] [place] [address], [address] , [place], [place], [address] , . tel: [phone] Referring Provider: Misael Obregon, [address] [place] [address] [address] , [place], [address] . tel:[phone] Family History Family Member Type Diagnosis Age At Onset Mother Problem (finding) attention deficit hyper activity disorder Mother Problem (finding) osteoporosis Mother Problem (finding) Allergies Mother Problem (finding) depression Payers Payer name Insurance type Covered democrat ID Sara duenas(s) [facility] ACCESS BL [id number] Social History Type Description Quantity Date Captured [...] , guidance, and counseling completed Referral Ordered: [facility] (related to Anxiety) ordered Referral Referred To: [id number] Ordered: Referrals: Counseling/mental health services. [facility]: [facility]. Evaluate and treat - Level 2 ordered [...] her in 2021. 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 She states she had 2 COVID vaccines, does not have card with her. She wants to have hepatitis B vaccine- [facility]. Chronic Conditions *See Chronic Conditions [...] had imaging- beginning when she lived in [place] and then saw a neurologist at [facility]. She states at one time she had [...] has not been to the neurologist at [facility] since about 2012. She states she notices [...] her in 2021. 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 She states she had 2 COVID vaccines, does not have card with her. She wants to have hepatitis B vaccine- [facility] Related to Encounter for general [...] [place] of thyroid and refer back to shipping inspector. Related to Thyroid disorder Continue to work [...]
--- OUTSIDE RECORDS SUMMARY | 2025-04-29 10:29 | XMS_ITS | Clinical Summary ---
Author Organization [facility] [address] [place] [address] Care Team Providers Care Freight Loading Supervisor Name Role Phone Misael Obregon MD Primary Care Provider [phone] Allergies Active Allergy Reactions Criticality Noted Date Comments Amoxicillin Medications No known medications Active Problems Problem Noted Date Diagnosed Date Thyroid nodule 12/25/2022 Assessment & Plan (12/25/2022 5:30 PM PRESSURE TESTER): I looked at Amber's thyroid under our [...] on file Legal Sex Female 8:45 PM PRESSURE TESTER Gender Identity Not on file Sexual Orientation Not on file Obstetrics History Last Filed Vital Signs Vital Sign Reading Time Taken Comments Blood Pressure 116/80 12/25/2022 12:17 PM PRESSURE TESTER Pulse 88 11/30/2015 3:11 PM PRESSURE TESTER Temperature - - Respiratory Rate 12 12/25/2022 12:17 PM PRESSURE TESTER Oxygen Saturation - - Inhaled Oxygen Concentration - - Weight 82.2 kg (181 lb 3.2 oz) 12/28/2022 3:17 P M PRESSURE TESTER Height 149.9 cm (4' 11) 12/28/2022 3:17 PM PRESSURE TESTER Body Mass Index 36.6 12/28/2022 3:17 PM PRESSURE TESTER Plan of Treatment Health Maintenance Due Date [...] patient's age to complete this topic Insurance [employer] OOS BLUE ACCESS OOS ANTH TRADITIONAL [place] [id number] Care Teams Freight Loading Supervisor Relationship Specialty Start Date End Date Misael Obregon MD PCP - General Internal Medicine 02/06/19
--- OUTSIDE RECORDS SUMMARY | 2025-04-29 10:29 | XMS_ITS | Referral Summary ---
Author Organization [facility] Physician Office Building [address] [place] [address] Care Team Providers Care Plate Fitter Name Role Phone Misael Obregon MD Primary Care Provider [phone] Allergies Active Allergy Reactions Criticality Noted Date Comments Amoxicillin Medications No known medications Active Problems Problem Noted Date Diagnosed Date Thyroid nodule 12/25/2022 Assessment & Plan (12/25/2022 5:30 PM EXPORT SALES ASSISTANT): I looked at Amber's thyroid under our [...] on file Legal Sex Female 8:45 PM EXPORT SALES ASSISTANT Gender Identity Not on file Sexual Orientation Not on file Last Filed Vital Signs Vital Sign Reading Time Taken Comments Blood Pressure 116/80 12/25/2022 12:17 PM EXPORT SALES ASSISTANT Pulse 88 11/30/2015 3:11 PM EXPORT SALES ASSISTANT Temperature - - Respiratory Rate 12 12/25/2022 12:17 PM EXPORT SALES ASSISTANT Oxygen Saturation - - Inhaled Oxygen Concentration - - Weight 82.2 kg (181 lb 3.2 oz) 12/28/2022 3:17 P M EXPORT SALES ASSISTANT Height 149.9 cm (4' 11) 12/28/2022 3:17 PM EXPORT SALES ASSISTANT Body Mass Index 36.6 12/28/2022 3:17 PM EXPORT SALES ASSISTANT Plan of Treatment Not on file Insurance [employer] OOS [employer] OOS [employer] TRADITIONAL Care Teams Plate Fitter Relationship Specialty Start Date End Date Misael Obregon MD PCP - General Internal Medicine 02/06/19
--- OUTSIDE RECORDS SUMMARY | 2025-04-29 10:29 | XMS_ITS | Data Portability ---
Author Organization [facility] Address [address] [place] [address] Assessment No assessment recorded. Plan of Treatment Reminders Order Date Submit Date Provider Last Modified By Organization Details Last Modified Time Details Appointments None recorded. Lab urinalysis, complete 2014 016 [facility]ala [facility], [address], [address], [place], [address], 6 09:40:21 lipid panel, serum 2014 016 asavala [facility], [address], [address], [place], [address], 6 09:40:52 HbA1c (hemoglobin A1c), blood 2014 016 asavala [facility], [address], [address], [place], [address], 6 09:50:36 CBC w/ auto diff 2014 016 asavala [facility], [address], [address], [place], [address], 6 09:40:52 CMP, serum or plasma 2014 016 asavala [facility], [address], [address], [place], [address], 6 09:40:52 thyroid panel, serum 2014 016 asavala [facility], [address], [address], [place], [address], 6 09:50:36 thyroid panel, serum 2014 015 asavala [facility], [address], [address], [place], [address], 5 10:12:02 urinalysis, complete 2014 015 GR[facility], [address], [address], , [place], [address], 5 04:20:55 HbA1c (hemoglobin A1c), blood 2014 015 jalyna [facility], [address], [address], , [place], [address], 5 14:17:05 CBC w/ auto diff 2014 015 [facility], [address], [address], , [place], [address], 5 04:20:55 CMP, serum or plasma 2014 015 [facility], [address], [address], , [place], [address], 5 04:20:56 lipid panel, serum 2014 015 [facility], [address], [address], [place], [address], 5 04:20:57 thyroid panel, serum 2014 015 [facility], [address], [address], , [place], [address], 5 04:20:59 Referral ENT referral - Complex thyroid cyst, normal TFT 2014 015 [email or web address] Jonathan Patten, [address] [place], [address], 5 16:48:11 endocrinolo gy referral - Tachycardia with an elevated free T3, normal free T3 and normal TSH 10/21/2014[address] [email or web address], [address] [place], [address], 5 12:12:10 Procedures None recorded. Surgeries None recorded. Imaging ultrasound, thyroid - Elevated Total free T3 2014 015 [facility] ([facility]), [address] [place] [address], [address], 5 17:41:08 Medication Orders None recorded. Patient TargetsNo targets recorded. Patient Instructions Encounter Date Encounter Id Patient Instructions Last Modified By Organization Details Last Modified Time 09/21/2015 [id number] When You Want to Lose Weight: Care [...] resul t No observ ation record ed. [facility] (Imaging) [address], [place], [address], 02/04/2015 16:26:44 11/21/19 16 11/08/2015 imagi ng/di agnos tic resul t No observ ation record ed. [facility] [place] [address] , [place], [address], 11/21/2015 14:36:31 03/20/20 17 cardi ac monit or No observ ation record ed. [facility] [address], [place], [address], 03/20/2017 13:57:59 03/29/20 17 03/29/2017 trans -thor acic echoc ardio gram (TTE) (PROC ) No observ ation record ed. [facility] [address], [place], [address], 03/30/2017 08:22:49 04/03/20 17 04/03/2017 home sleep testi ng* No observ ation record ed. [facility] [address], [place], [address], 04/04/2017 06:36:43 04/17/20 24 04/17/2024 CT, abdom en + pelvi s, w/ contr ast No observ ation record ed. [place] [address], [place], [address], 04/20/2024 09:19:12 04/17/20 24 04/17/2024 US, trans vagin al No observ ation record ed. [place] [id number], [place], [address], 04/20/2024 09:19:40 Result Notes None recorded. Problems Name Problem SNOMED Code Status Onset Date Resolution Date Notes Provider Name and Address Organization Details Recorded Time Tachycardia 2714499 Active Oswald Grant MD Attn: Shena case,[address] [facility], [place], [address], [facility] 5 15:20:28 Thyroid hormone tests outside reference range 755612665 Active Oswald Grant MD Attn: Shena case,[address] [facility], [place], [place], [address] [place] [address] 2, [place] - [facility] 5 16:17:46 Cyst of thyroid 26533529 Active Oswald Grant MD Attn: Shena case,[address] [facility], [place], [place], [address] [place] [address], [place] - [facility] 5 16:17:46 Overweight 084467908 Active Oswald Grant MD Attn: Shena case,[address] [facility], [place], [address], [place] - [facility] 5 16:17:46 Notes:THyroid 19 y/o WF wh o I last saw in this office 09/22/2012, she was seen in the ER with CP and then by the international marketing executive, Dr. Newberry who noted that her T3 was low? or high? 10/30/14. She was advised that she needed to be seen by an airline reservation agent. However she was told that she needs to be seen here first before she can be referred, she also follows up with the psychiatrist HARSHA Mishra for her depression. Problem Notes None recorded. Procedures Surgical History Date Name Laterality Status Provider Name and Address Organization Details Recorded Time Cholecystectomy completed February Rik dolan MA [facility] 12/20/2014 15:00:35 Imaging Results None recorded. Procedure Notes None recorded. Medical Equipment None Reported. Allergies Allergen ID Allergen Name Allergen Category Reaction Reaction Severity Criticality Documentation Date Start Date Code Code System Note Provider Name and Address Organization Details Recorded Time amoxicill in medicatio n Not available Not available Not available 12/20/2014 723 RxNorm February YOON Weber null, [place] - [facility] 5 15:00:35 Medications Name Sig [...] Details Last Updated DateTime 5 20 /min 63176.5 9446 g 84 /min 0 kg/m2 55369.2 8 cm 99.2 [degF] 120 mm[Hg] 70 mm[Hg] February [facility] 15:00:35 Date Recorded Respiratory rate Body weight Heart rate Body mass index (BMI) Body height Body temperature Systolic blood pressure Diastolic blood pressure Provider Name and Address Organization Details Last Updated DateTime 5 20 /min 11349.7 792 g 78 /min 32.3 kg/m2 149.86 cm 99.1 [degF] 118 mm[Hg] 72 mm[Hg] February Tia [facility] 5 16:22:32 Date Recorded Respiratory rate Body weight Body height Body mass index (BMI) Heart rate Body temperature Systolic blood pressure Diastolic blood pressure Provider Name and Address Organization Details Last Updated DateTime 5 20 /min 84209.9 6394 g 149.86 cm 32.7 kg/m2 80 /min 98 [degF] 122 mm[Hg] 72 mm[Hg] February Tia [facility] 5 15:59:51 Social History Question Answer Notes LastModified by Organizat ion Details LastModified Time Tobacco Smoking Status Never Smoker February YOON Weber [facility] 12/20/2014 15:00:35 Do You Have An [...] SNOMED-CT Code Diagnosis ICD10 Code Diagnosis Note [id number] Oswald Grant MD [facility] (Adult Med) [address] [place] [address] 12/20/2014 14:27:48 12/20/2014 15:39:18 General examination of patient [id number] Tachycardia 8372842 Symp tomati c tachycardi a with normal free T3, elevated free T4 and a normal TSH 10/21/14, now on Propranolo l 10 mg po daily Thyroid ho rmone tests outside reference range 991361597 Abnormal TFTs, with a normal free T3, elevated free T4 and a normal TSH 10/21/14. Recheck labs, obtain thyroid ultrasound and have her seen by the endocrinol ogist. [id number] MD Mariana [facility] (Adult Med) [address] [place] [address] 02/04/2015 15:55:55 02/04/2015 16:44:58 Thyroid hormone tests outside reference range 102147379 Repeat labs done 12/22/2014 were reviewed with the patient, they are all normal and I think one can safely monitor this closely in 6 months. Cyst of thyroid 38225494 complex cyst of the thyroid, ENT evaluation [id number] MD Mariana [facility] (Adult Med) [address] [place] [address] 09/21/2015 15:46:48 09/21/2015 17:55:43 Thyroid hormone tests outside reference range 106740219 R94.6 Repeat labs done 07/27/2015 were reviewed with the patient, they are all normal and I think one can safely monitor this closely. She saw both te endocrinol ogist, Dr. Chatman and the cardiologi st, Dr. Newberry. Cyst of thyroid 96711762 E04.1 complex cyst of the thyroid, endocrinol ogy evaluation was done, the impression was that it is a cyst. Overweight 249058467 E66 .3 Health Concerns Section Related Observation LastModified by Organization Detai ls LastModified Time None Recorded Concern Status LastModified by Organization Details LastModified Time None Recorded Advance Directives Directive N: Payers Insurance Date Sequence Insurance Name Policy Number Policy Corbin Covered Member ID Corbin Member ID Guarantor Name 09/18/2015 1 [facility] (MEDICAID HMO) [id number] Amber Barroso [id number] Amber Barroso OBGyn Episode No OBEpisode recorded.
[2025-04-29 10:57] VITALS: BP 133/73; PULSE 103
--- NOTE | 2025-05-16 09:46 | PM.OBTRLD ---
OB - Triage/Final Diagnosis Visit Information Comments/Additional reasons for admission: I have assessed the risk for this patient, Amber Barroso, and determined that she would benefit from observation care. Evaluation Laboratory results: Laboratory Tests 04/29/25 10:11 Urine Color Yellow Urine Appearance Clear Urine pH 7.0 Ur Specific Crouse 1.009 Urine Protein Negative Urine Glucose (UA) Negative Urine Ketones Negative Ur Blood (Man) Negative Urine Nitrate Negative Urine Bilirubin Negative Urine Urobilinogen 0.2 Ur Leukocyte Esterase Negative Final Diagnosis (1) Pelvic pressure in : Code(s): O26.899 - Other specified related conditions, unspecified trimester; R10.2 - Pelvic and perineal pain Status: Acute
== END 2025-04-29 11:11 | disposition home or self-care (01) ==
PROVIDERS: Admitting Provider Obstetrics & Gynecology; PCP Internal Medicine; Visit Provider Obstetrics & Gynecology
DX: O26.899 Other specified pregnancy related conditions, unspecified trimester (principal); R10.2 Pelvic and perineal pain; Z3A.00 Weeks of gestation of pregnancy not specified
CPT/HCPCS: 81003; 87086; G0378; G0379

== ENCOUNTER 2025-06-22 10:07 | Outpatient (RCR) | payer OTHER, SELFPAY ==
[2025-06-22 17:30] VITALS: BP 125/84; PULSE 83
== END 2025-06-26 09:48 | disposition home or self-care (01) ==
LOC: ANHOBOP 10:07
PROVIDERS: PCP Internal Medicine; Visit Provider Obstetrics & Gynecology
DX: O36.8130 Decreased fetal movements, third trimester, not applicable or unspecified (principal); Z3A.38 38 weeks gestation of pregnancy
CPT/HCPCS: 59025

== ENCOUNTER 2025-06-23 15:43 | Inpatient (IN) | payer OTHER, SELFPAY ==
[2025-06-23] VITALS (9 sets, daily range): BP systolic 91–121; BP diastolic 48–89; PULSE 96–110; BMI 47.8
--- OUTSIDE RECORDS SUMMARY | 2025-06-23 16:01 | XMS_ITS | Clinical Summary ---
Author Organization [facility] Physician Office Building [address] [place] [address] Care Team Providers Care Materials Handler Name Role Phone Misael Obregon MD Primary Care Provider [phone] Allergies Active Allergy Reactions Criticality Noted Date Comments Amoxicillin Medications No known medications Active Problems Problem Noted Date Diagnosed Date Thyroid nodule 12/25/2022 Assessment & Plan (12/25/2022 5:30 PM NC MACHINIST): I looked at Amber's thyroid under our [...] on file Legal Sex Female 8:45 PM NC MACHINIST Gender Identity Not on file Sexual Orientation Not on file Obstetrics History Last Filed Vital Signs Vital Sign Reading Time Taken Comments Blood Pressure 116/80 12/25/2022 12:17 PM NC MACHINIST Pulse 88 11/30/2015 3:11 PM NC MACHINIST Temperature - - Respiratory Rate 12 12/25/2022 12:17 PM NC MACHINIST Oxygen Saturation - - Inhaled Oxygen Concentration - - Weight 82.2 kg (181 lb 3.2 oz) 12/28/2022 3:17 P M NC MACHINIST Height 149.9 cm (4' 11) 12/28/2022 3:17 PM NC MACHINIST Body Mass Index 36.6 12/28/2022 3:17 PM NC MACHINIST Plan of Treatment Health Maintenance Due Date Last Done Comments Cervical Cancer Screening 1993 Depression Screening 1993 Hepatitis C Screening 1993 DTaP/Tdap/Td Vaccine (4 - Tdap) 2004 06/12/1994, 05/01/1994, 03/05/1994 Varicella Vaccines (1 of 2 - 13+ 2-dose series) 2006 Hepatitis B Screening 2011 Regular Well Visit/Exam 18-64 2011 HPV Vaccines (1 - 3-dose SCD M series) 2020 Covid-19 Vaccine (3 - 2023-2 5 season) 2024 03/09/2021, 02/16/2021 Influenza Vaccine (#1) 2025 Pneumococcal vaccine <65 Aged Out No longer eligible based on patient's age to complete this topic Insurance [employer] OOS BLUE ACCESS OOS [employer] TRADITIONAL [place] [id number] Care Teams Materials Handler Relationship Specialty Start Date End Date Misael Obregon MD PCP - General Internal Medicine 02/06/19
--- NOTE | 2025-06-23 16:13 | PM.IMHP ---
H&P: HPI History of Present Illness Date/Time: 06/23/25 16:13 Chief Complaint: Induction of labor at term Narrative: 29-year-old female 1 para 0 last menstrual period was 09/16/2024. EDC is 07/01/2025, presents at 39 weeks gestation for induction labor secondary to chronic hypertension. She and low risk NIPT she is negative for group B strep she passed her 3hour GTT. In light of her chronic hypertension she is admitted for induction of labor Review of Systems Review of Systems: All systems reviewed & are unremarkable except as noted in HPI and below PMFSH Family History Family History Grandparent Congestive heart failure Sibling Blindness Grandparent Diabetes mellitus Social History Social History Smoking status: Current every day smoker Tobacco type: e-cigarettes/vaping Substance use: never Substance use type: does not use Do You Feel Safe in your Home?: Yes Lack of Transportation: No Lack of Food: Never True Current Housing: I Have Housing Concerned About Future Housing: No Difficulty Paying Gas/Electric Bills: No Difficulty Paying for Meds: No Currently Unemployed: No Education: High School Diploma/GED Difficulty w/ Childcare or Family Care: No Living arrangements: alone Spiritual care concerns: No Meds Home Medications and Allergies Home Medications ?Medication ?Instructions ?Recorded ?Confirmed ?Type labetalol 200 mg tablet 100 mg PO .Noon PRN BP 04/21/25 06/22/25 History labetalol 200 mg tablet 200 mg PO Q12H 04/21/25 06/22/25 History vit no.95-ferrous 1 tablet PO DAILY 04/21/25 06/22/25 History fumarate 28 mg-folic acid 800 mcg tablet () Allergies Allergy/AdvReac Type Severity Reaction Status Date / Time Penicillins Allergy Mild Hives Verified 05/31/25 15:29 amoxicillin Allergy Hives Verified 05/31/25 15:29 Exam Const: General: cooperative, healthy appearing and comfortable Nutritional Appearance: obese Orientation/consciousness: oriented to person, oriented to place and oriented to time Resp: Effort & Inspection: normal respiratory effort Cardio: Rate: regular rate Rhythm: regular rhythm Heart sounds: S1 normal heart sound present and S2 normal heart sound present GI: Inspection: normal to inspection (Gravid soft uterus) : Speculum Exam - Cervix: normal appearance of the cervix Assessment and Plan Assessment and plan (1) Term : Code(s): Z34.90 - Encounter for supervision of normal , unspecified, unspecified trimester Status: Acute (2) Chronic hypertension: Code(s): I10 - Essential (primary) hypertension Status: Acute Plan Medical induction labor spontaneous vaginal delivery expected. She has had epidural candidate
--- NOTE | 2025-06-23 16:50 | LDADM ---
This patient, Amber Rosas, was admitted to Labor/Delivery/Recovery 103 on 06/23/25 at 15:43. Plans for labor, pain management and were discussed with patient. Patient/family oriented to hospital policies and general routines including ID bracelet, bed and alarms, visiting hours, pain management, procedures, bathroom and other care routines, personal items, smoking policy, room service/diet and guest tray routines, infant security routines, and visiting hours. Patient/Family are encouraged to report perceived risks to care and to ask questions if they do not understand what they are told or what they should do. See OBIX for further documentation.
--- NOTE | 2025-06-23 17:15 | P.PNAN_ITS ---
Anes - Eval Pre Procedure Procedure: Labor epidural Date/Time: 06/23/25 17:15 Surgeon: Seven Berry Preop Diagnosis: pain during labor Pre Op Diagnosis: IOL Patient Data Age: 29 Gender: F Height: 1.5 m Weight: 107.5 kg Last Vital Signs O2 Del Method Room Air 06/23/25 16:48 Allergies Allergy/AdvReac Type Severity Reaction Status Date / Time Penicillins Allergy Mild Hives Verified 06/23/25 17:14 amoxicillin Allergy Hives Verified 06/23/25 17:14 Home Medications ?Medication ?Instructions ?Recorded ?Confirmed ?Type labetalol 200 mg tablet 100 mg PO .Noon PRN BP 04/21/25 06/22/25 History labetalol 200 mg tablet 200 mg PO Q12H 04/21/25 06/22/25 History vit no.95-ferrous 1 tablet PO DAILY 04/21/25 06/22/25 History fumarate 28 mg-folic acid 800 mcg tablet () Patient hx anesthesia problems: none Family hx anesthesia problems: none Results Review: All pre-operative results and documents have been reviewed as part of the pre- operative evaluation. [facility] Past Medical History Medical History (Updated 06/23/25 @ 17:16 by Cheyanne eNwell CRNA) Anxiety SVT (supraventricular tachycardia) Morbid obesity with BMI of 45.0-49.9, adult Family History Family History Grandparent Congestive heart failure Sibling Blindness Grandparent Diabetes mellitus Social History Social History Smoking status: Former smoker Tobacco type: e-cigarettes/vaping Smoking end date: 07/19/24 Substance use: never Substance use type: does not use Do You Feel Safe in your Home?: Yes Lack of Transportation: No Lack of Food: Never True Current Housing: I Have Housing Concerned About Future Housing: No Difficulty Paying Gas/Electric Bills: No Difficulty Paying for Meds: No Currently Unemployed: No Education: Trade/Vocational Certificate Difficulty w/ Childcare or Family Care: No Living arrangements: alone Spiritual care concerns: No Exam Day of Procedure 06/23/25 17:15
[2025-06-23 17:31] LABS: Hematocrit 35.0 % (37.0-47.0); Hemoglobin 11.4 g/dL (12.0-15.0); Immature Granulocyte Percent A 0.5 % (0-0.5); Lymphocytes Absolute Auto 1.77 K/mm3 (0.9-3.2); Mean Corpuscular HGB Conc 32.6 g/dl (32-36); Mean Corpuscular Hemoglobin 30.2 pg (26-34); Mean Corpuscular Volume 92.8 fl (80-100); Nucleated Red Blood Cells Absolute Auto 0.000 K/mm3 (0.0-0.012); Nucleated Red Blood Cells Perc 0.0 % (0.0-0.2); Platelet Count Result 193 k/mm3 (150-375); Red Blood Count 3.77 M/mm3 (4.2-5.4); White Blood Count 10.2 K/mm3 (4.5-10.0)
[2025-06-23] MEDS: DINOPROSTONE 10 MG VAG INSERT VAGINAL (17:35)
[2025-06-23 18:19] LABS: Syphilis IgG/IgM Antibody Non-Reactive (Nonreactive)
[2025-06-24] VITALS (156 sets, daily range): BP systolic 80–135; BP diastolic 18–83; PULSE 76–146; RESP 15–23; TEMP 36–36.8; O2SAT 85–100
[2025-06-24] MEDS: LACTATED RINGERS 1,000 ML 125 ML IV CONT ×2 (05:22→16:35)
--- NOTE | 2025-06-24 06:15 | PM.OBPNLAB ---
Pain Control Date/time seen: 06/24/25 06:15 Pain control: tolerating well Pelvic Exam Dilation (cm): 0 Contractions Monitor mode: External
[2025-06-24] MEDS: OXYTOCIN 30 UNITS/NS 500 ML 30 UNITS/500 ML BAG 6 UNITS IV CONT (06:23)
[2025-06-24] MEDS: DINOPROSTONE 10 MG VAG INSERT VAGINAL (11:32)
[2025-06-24] MEDS: ONDANSETRON INJ 4 MG/2 ML VIAL IV PUSH ×2 (11:37→16:34)
--- NOTE | 2025-06-24 12:15 | PM.OBPNLAB ---
Pain Control Date/time seen: 06/24/25 12:15 Pain control: tolerating well Comments: minimal change of cx. replace cervidil Pelvic Exam Dilation (cm): 0 Contractions Monitor mode: External
--- NOTE | 2025-06-24 16:19 | WPDHPUPDATE1 ---
History and Physical Update Update Date/Time: 06/24/25 16:19 History and Physical has been reviewed, including an updated exam of the patient. There are NO changes in the patient's condition. Risks, benefits, and alternatives have been discussed and questions answered. Patient agrees to proceed with procedure. Patient has had no cervical change and requests section increase risk of bleeding infection perforation injury to bowel bladder ureters or other internal organs were reviewed she had all questions answered and asked to proceed
[2025-06-24] MEDS: FAMOTIDINE 20 MG/2 ML VIAL IV PUSH (16:34)
[2025-06-24] MEDS: ACETAMINOPHEN 500 MG TABLET 1000 MG PO ×2 (16:35→22:37)
--- NOTE | 2025-06-24 16:44 | P.PNAN_ITS ---
Anes - Initial Pre Proc Eval Date/Time: 06/24/25 16:44 Surgeon: Estuardo Berry MD Pre Op Diagnosis: IOL Patient Data Age: 29 Gender: F Height: 1.5 m Weight: 107.5 kg Last Vital Signs Temp 36.2 C L 06/24/25 15:00 Pulse 97 06/24/25 15:06 BP 129/52 L 06/24/25 15:06 Pulse Ox 98 06/24/25 15:28 O2 Del Method Room Air 06/23/25 16:48 Allergies Allergy/AdvReac Type Severity Reaction Status Date / Time Penicillins Allergy Mild Hives Verified 06/23/25 17:14 amoxicillin Allergy Hives Verified 06/23/25 17:14 Home Medications ?Medication ?Instructions ?Recorded ?Confirmed ?Type labetalol 200 mg tablet 100 mg PO .Noon PRN BP 04/21/25 06/22/25 History labetalol 200 mg tablet 200 mg PO Q12H 04/21/25 06/23/25 History vit no.95-ferrous 1 tablet PO DAILY 04/21/25 06/23/25 History fumarate 28 mg-folic acid 800 mcg tablet () Laboratory Tests 06/23/25 17:23 WBC 10.2 H K/mm3 (4.5-10.0) RBC 3.77 L M/mm3 (4.2-5.4) Hgb 11.4 L D g/dL (12.0-15.0) Hct 35.0 L % (37.0-47.0) MCV 92.8 fl (80-100) MCH 30.2 pg (26-34) MCHC 32.6 g/dl (32-36) RDW 14.3 % (11.5-14.5) Plt Count 193 k/mm3 (150-375) MPV 11.8 H fl (7.4-10.4) Immature Gran % (Auto) 0.5 % (0-0.5) Neut % (Auto) 69.9 % (45.5-73.1) Lymph % (Auto) 17.3 L % (18.3-44.2) Schoolcraft % (Auto) 10.5 H % (2.6-8.5) Eos % (Auto) 1.6 % (0-4.4) Baso % (Auto) 0.2 % (0.2-1.2) Lymph # (Auto) 1.77 K/mm3 (0.9-3.2) Schoolcraft # (Auto) 1.1 H K/mm3 (0.1-0.6) Eos # (Auto) 0.2 K/mm3 (0-0.3) Baso # (Auto) 0.0 K/mm3 (0.0-0.1) Abs Immat Gran (auto) 0.05 H K/mm3 (0.00-0.031) Absolute Neuts (auto) 7.2 H K/mm3 (1.3-6.7) Absolute Nucleated RBC 0.000 K/mm3 (0.0-0.012) Nucleated RBC % 0.0 % (0.0-0.2) Syphilis IgG/IgM Ab Non-reactive (Nonreactive) Blood Type O Positive Antibody Screen Negative Patient hx anesthesia problems: none Family hx anesthesia problems: none Results Review: All pre-operative results and documents have been reviewed as part of the pre- operative evaluation. [facility] Past Medical History Medical History Anxiety SVT (supraventricular tachycardia) Morbid obesity with BMI of 45.0-49.9, adult Family History Family History Grandparent Congestive heart failure Sibling Blindness Grandparent Diabetes mellitus Social History Social History Smoking status: Former smoker Tobacco type: e-cigarettes/vaping Smoking end date: 07/19/24 Substance use: never Substance use type: does not use Do You Feel Safe in your Home?: Yes Lack of Transportation: No Lack of Food: Never True Current Housing: I Have Housing Concerned About Future Housing: No Difficulty Paying Gas/Electric Bills: No Difficulty Paying for Meds: No Currently Unemployed: No Education: Trade/Vocational Certificate Difficulty w/ Childcare or Family Care: No Living arrangements: alone Spiritual care concerns: No Anes - Eval Final PreProcedure Day of Procedure 06/24/25 16:44 Patient weight: morbidly obese Heart: regular rate and rhythm Lungs: clear to auscultation Airway: Mallampati scale class II Neurological: alert and oriented Last oral intake: >/= 8 hours ASA classification: III Emergent: no Anesthetic plan: proceed Anesthesia type and monitoring: regional spinal and standard monitoring Results Review: All pre-operative results and documents have been reviewed as part of the pre- operative evaluation. Informed Consent: The patient's anesthetic plan and its attendant risks and benefits were discussed with the patient/family/POA. Questions were solicited and answers provided to the satisfaction of the patient/family/POA.
[2025-06-24] MEDS: ceFAZolin 2 GM in SODIUM CHLORIDE 0.9% IV 50 ML 100 ML IVPB (17:25)
[2025-06-24] MEDS: AZITHROMYCIN IV 500 MG in SODIUM CHLORIDE 0.9% IV 250 ML IVPB (17:40)
--- NOTE | 2025-06-24 18:08 | P.PCNOB_ITS ---
OB - Delivery Note Procedure Delivery date: 06/24/25 Pre-op diagnosis: Arrest of Dilation Post-op Diagnosis: Same Induction method: Per Cervidil Protocol Delivery monitor: External FHT and External Uterine Prior to decision for section, ACOG/SMFM labor guidelines were considered and discussed with the patient and staff. Decision made to proceed with the section.: Yes Procedure Performed: Primary Surgeon: Estuardo Berry MD Anesthesia type: Spinal Description of Procedure/Findings: Patient was prepped and draped in the normal sterile fashion placed in the supine position. Under excellent spinal anesthetic the abdomen was then a Pfannenstiel fashion risks layers of fascia. Fascia incised midline carried in upward fashion bilaterally underlying muscles sharply dissected. Parietal peritoneum male by Ana Cristina clamps and by sharp dissection carried superiorly and inferiorly dome of the bladder bladder blade placed and a bladder flap formed. Bladder blade returned a low transverse incision made the head delivered in the SUJIT position. Anterior and posterior shoulder delivered spontaneously. Cord clamped x2 cut. Infant passed off the table given Apgars of 8 [id number] and 10 [id number]. Cord blood was drawn. Placenta intact spontaneously 20 of Pitocin placed IV to help firm the uterus. Uterus was closed continuous running locking 0 Vicryl from lateral edge to lateral edge. This was followed by 2nd imbricat ing running locking 0 Vicryl from lateral edge to lateral edge. Hemostasis was assured. Ovaries and tubes appeared within normal limits and uterus returned the abdomen. The hysterotomy incision inspected 1 last time noted be hemostatic fascia closed with continuous running 0 Vicryl from lateral edge to lateral edge. Irrigation subcutaneous layer and the skin closed with 4 Monocryl glue. QBL was 480cc 5cc. All sponge, needle, instrument counts were correct. There were no immediate complications Specimen: No Estimated Blood Loss: 485 Drains: No Packing: No Pathology: None sent Complications: No immediate complications Condition: Stable Disposition: PACU [place] [facility] Date of : 06/24/25 Time of : 17:50 Infant gender: Female Weight (pounds): 8 Weight (ounces): 7 presentation: vertex position: Right Occiput Anterior score one minute: 8 score five minutes: 10
--- NOTE | 2025-06-24 18:13 | PM.DS ---
DS: Admitting Diagnosis Discharge Date 06/26/25 <Natividad Hatch MD - Last Filed: 06/26/25 06:23> Admitting Diagnosis Term <Estuardo Berry MD - Last Filed: 06/24/25 18:15> DS: Discharge Diagnosis Discharge Diagnosis (1) Term : Code(s): Z34.90 - Encounter for supervision of normal , unspecified, unspecified trimester <Estuardo Berry MD - Last Filed: 06/24/25 18:15> Status: Acute <Estuardo Berry MD - Last Filed: 06/24/25 18:15> DS: Summary Hospital Course Reason for hospitalization: Patient was admitted for induction of labor on 06/23 2025 and delivered on 06/24/2025 via section for failure to progress <Estuardo Berry MD - Last Filed: 06/24/25 18:15> Hospital Course: Patient's hospital course unremarkable. She remained afebrile. She was up, voiding without difficulty, eating regular diet, ambulating, and generally without complaints. <Estuardo Berry MD - Last Filed: 06/24/25 18:15> Time Spent with Patient Time attestation: Total time spent providing and/or coordinating discharge services: <Estuardo Berry MD - Last Filed: 06/24/25 18:15> Exam Const: General: cooperative, healthy appearing and comfortable <Estuardo Berry MD - Last Filed: 06/24/25 18:15> Nutritional Appearance: obese <Estuardo Berry MD - Last Filed: 06/24/25 18:15> Orientation/consciousness: oriented to person, oriented to place and oriented to time <Estuardo Berry MD - Last Filed: 06/24/25 18:15> Resp: Effort & Inspection: normal respiratory effort <Estuardo Berry MD - Last Filed: 06/24/25 18:15> Cardio: Rate: regular rate <Estuardo Berry MD - Last Filed: 06/24/25 18:15> Rhythm: regular rhythm <Estuardo Berry MD - Last Filed: 06/24/25 18:15> Heart sounds: S1 normal heart sound present and S2 normal heart sound present <Estuardo Berry MD - Last Filed: 06/24/25 18:15> GI: Inspection: normal to inspection (Gravid soft uterus) <Estuardo Berry MD - Last Filed: 06/24/25 18:15> : Speculum Exam - Cervix: normal appearance of the cervix <Estuardo Berry MD - Last Filed: 06/24/25 18:15> DS: Data Data Completed and Pending Labs on day of discharge: Labs from last 24 hours 06/23/25 17:23 Syphilis IgG/IgM Ab Non-reactive Blood Type O Positive Antibody Screen Negative <Estuardo Berry MD - Last Filed: 06/24/25 18:15> Discharge Plan Discharge Attending physician on discharge: Estuardo Gupta <Estuardo Berry MD - Last Filed: 06/24/25 18:15> Estuardo Gupta <Natividad Hatch MD - Last Filed: 06/26/25 06:23> Discharging Clinician: Estuardo Gupta <Estuardo Berry MD - Last Filed: 06/24/25 18:15> Estuardo Gupta <Natividad Hatch MD - Last Filed: 06/26/25 06:23> Patient Disposition: Home <Estuardo Berry MD - Last Filed: 06/24/25 18:15> Activity: may shower, no straining, may drive after 2 weeks and pelvic rest <Estuardo Berry MD - Last Filed: 06/24/25 18:15> may shower, no straining, may drive after 2 weeks and pelvic rest <Natividad Hatch MD - Last Filed: 06/26/25 06:23> Diet: heart healthy <Estuardo Berry MD - Last Filed: 06/24/25 18:15> heart healthy <Natividad Hatch MD - Last Filed: 06/26/25 06:23> Wound Care Instructions: follow printed instructions <Estuardo Berry MD - Last Filed: 06/24/25 18:15> follow printed instructions <Natividad Hatch MD - Last Filed: 06/26/25 06:23> Patient Instructions: Antibiotic Form <Estuardo Berry MD - Last Filed: 06/24/25 18:15> Patient Language: Macedonian <Estuardo Berry MD - Last Filed: 06/24/25 18:15> Stand Alone Forms: General Discharge Information <Estuardo Berry MD - Last Filed: 06/24/25 18:15> Follow-up/Referrals: Estuardo Gupta MD [Physician] - <Estuardo Berry MD - Last Filed: 06/24/25 18:15> Discharge Medications: New hydrocodone-acetaminophen 5-325 mg tablet 1 tablet PO Q4H PRN (Reason: pain) Qty: 20 0RF ferrous sulfate [Iron (ferrous sulfate)] 325 mg (65 mg iron) tablet 325 mg PO BID Qty: 60 1RF Continued PNV no.95-ferrous fumarate-FA [] 28 mg iron- 800 mcg tablet 1 tablet PO DAILY Discontinued labetalol 200 mg tablet 200 mg PO Q12H labetalol 200 mg tablet 100 mg PO .Noon PRN (Reason: BP) Patient Comments: Takes if SBP's in 150's and DBP in 89's <Estuarod Berry MD - Last Filed: 06/24/25 18:15> Date of admission: 06/23/25 15:43 <Estuardo Berry MD - Last Filed: 06/24/25 18:15> Primary Care Provider: Sabas,Misael Dela Cruz <Estuardo Berry MD - Last Filed: 06/24/25 18:15> Admitting Provider: Estuardo Gupta <Estuardo Berry MD - Last Filed: 06/24/25 18:15> Attending physician on admission: Estuardo Gupta <Estuardo Berry MD - Last Filed: 06/24/25 18:15> Condition: Stable <Estuardo Berry MD - Last Filed: 06/24/25 18:15>
[2025-06-24] MEDS: OXYTOCIN 30 UNITS/NS 500 ML 30 UNITS/500 ML BAG 125 UNITS IV CONT (18:35)
--- NOTE | 2025-06-24 20:30 | OBPPTRN ---
Patient transferred to post room #284 via stretcher. Support person present. Oriented to unit, room, information board, rooming in, admission packet and security measures. Patient verbalizes understanding.
[2025-06-24] MEDS: LIDOCAINE 5% PATCH 1 PATCH TRANSDERM (21:30)
[2025-06-24] MEDS: LORATADINE 10 MG TABLET PO (21:30)
[2025-06-24] MEDS: KETOROLAC 15 MG/ML VIAL (*BKC) IV PUSH (22:37)
[2025-06-24] MEDS: DEXTROSE 5%/0.45% SOD CHL 1,000 ML 125 ML IV CONT (22:40)
[2025-06-25] VITALS: BP 110/66; PULSE 93; RESP 16; TEMP 36.8; O2SAT 97
[2025-06-25] MEDS: ACETAMINOPHEN 500 MG TABLET 1000 MG PO ×3 (04:06→22:50)
[2025-06-25] MEDS: KETOROLAC 15 MG/ML VIAL (*BKC) IV PUSH (04:06)
[2025-06-25 04:34] LABS: Hematocrit 30.2 % (37.0-47.0); Hemoglobin 9.5 g/dL (12.0-15.0); Immature Granulocyte Percent A 0.3 % (0-0.5); Lymphocytes Absolute Auto 1.94 K/mm3 (0.9-3.2); Mean Corpuscular HGB Conc 31.5 g/dl (32-36); Mean Corpuscular Hemoglobin 30.4 pg (26-34); Mean Corpuscular Volume 96.5 fl (80-100); Nucleated Red Blood Cells Absolute Auto 0.000 K/mm3 (0.0-0.012); Nucleated Red Blood Cells Perc 0.0 % (0.0-0.2); Platelet Count Result 135 k/mm3 (150-375); Red Blood Count 3.13 M/mm3 (4.2-5.4); White Blood Count 12.1 K/mm3 (4.5-10.0)
--- NOTE | 2025-06-25 06:32 | P.PNOB_ITS ---
OB - PN: Subj Subjective Date/time seen: 06/25/25 06:32 Patient comments: no complaints, pain well controlled, tolerating diet and flatus present [place] baby status: doing well OB - PN: Obj Data Labs 06/25/25 04:05 Labs: Laboratory Results - last 24 hr 06/25/25 04:05 WBC 12.1 H RBC 3.13 L Hgb 9.5 L Hct 30.2 L MCV 96.5 MCH 30.4 MCHC 31.5 L RDW 14.4 Plt Count 135 L MPV 12.2 H Immature Gran % (Auto) 0.3 Neut % (Auto) 70.9 Lymph % (Auto) 16.1 L Murray % (Auto) 10.9 H Eos % (Auto) 1.5 Baso % (Auto) 0.3 Lymph # (Auto) 1.94 Murray # (Auto) 1.3 H Eos # (Auto) 0.2 Baso # (Auto) 0.0 Abs Immat Gran (auto) 0.04 H Absolute Neuts (auto) 8.6 H Absolute Nucleated RBC 0.000 Nucleated RBC % 0.0 OB - PN A/P Assessment and Plan (1) Term : Code(s): Z34.90 - Encounter for supervision of normal , unspecified, unspecified trimester Status: Acute Plan routine care Time Spent With Patient Time: Total time spent is greater than 50% in coordination of care (as documented) at patient's floor/unit and/or counseling patient: Review of Systems 2 Review of Systems: All systems reviewed & are unremarkable except as noted in HPI and below Exam 2 Const: General: cooperative, healthy appearing and comfortable Nutritional Appearance: overweight Orientation/consciousness: oriented to person, oriented to place and oriented to time Resp: Effort & Inspection: normal respiratory effort Cardio: Rate: regular rate Rhythm: regular rhythm Heart sounds: S1 normal heart sound present and S2 normal heart sound present GI: Inspection: normal to inspection and incision (cdi)
[2025-06-25 07:50] VITALS: BP 118/70; PULSE 98; RESP 18; TEMP 36.9; O2SAT 95
[2025-06-25] MEDS: DOCUSATE SODIUM 100 MG CAPSULE PO ×2 (08:31→16:31)
[2025-06-25] MEDS: MULTIVIT/MIN/PREN/FOL AC/IRON TABLET 1 TAB PO (08:32)
[2025-06-25] MEDS: FUROSEMIDE 20 MG TABLET PO (08:32)
[2025-06-25] MEDS: SIMETHICONE 80 MG TAB.CHEW PO ×2 (08:32→16:31)
[2025-06-25 12:28] VITALS: BP 132/66; PULSE 116; RESP 16; TEMP 36.6; O2SAT 99
--- NOTE | 2025-06-25 14:51 | WPDANLDPN2 ---
Anes-Prog Note L&D Date/Time: 06/25/25 14:51 Comfortable throughout: section Epidural/Spinal procedure site: clean & non-tender Neuro status: Neuro function grossly intact. Cardiovascular status: normal Respiratory status: normal Airway patency: baseline Mental status: baseline Vital Signs: Last Vital Signs Temp 36.6 C 06/25/25 12:28 Pulse 116 H 06/25/25 12:28 Resp 16 06/25/25 12:28 BP 132/66 06/25/25 12:28 Pulse Ox 99 06/25/25 12:28 O2 Del Method Room Air 06/25/25 08:30 Pain score (VAS): 2 I/O: Intake & Output 06/24/25 06/25/25 06/25/25 23:59 07:59 15:59 Intake Total 250 Output Total 864 806 202 [id number] -[id number] Patient feedback: Patient satisfied with anesthetic care.
[2025-06-25] MEDS: IBUPROFEN 600 MG TABLET PO ×2 (16:31→22:50)
[2025-06-25 16:36] VITALS: BP 127/73; PULSE 79; RESP 16; TEMP 36.7; O2SAT 100
[2025-06-25 18:49] VITALS: BP 145/80; PULSE 110; RESP 18; TEMP 36.9; O2SAT 99
[2025-06-25] MEDS: LIDOCAINE 5% PATCH 1 PATCH TRANSDERM (21:47)
[2025-06-25] MEDS: oxyCODONE HCL (*CRX) 5 MG TAB IR PO (21:47)
[2025-06-26] MEDS: IBUPROFEN 600 MG TABLET PO (05:19)
[2025-06-26] MEDS: ACETAMINOPHEN 500 MG TABLET 1000 MG PO (05:19)
[2025-06-26 06:20] VITALS: BP 127/61
--- NOTE | 2025-06-26 06:20 | P.PNOB_ITS ---
OB - PN: Subj Subjective Date/time seen: 06/26/25 06:20 Patient comments: no complaints and pain well controlled baby status: doing well OB - PN: Obj Data Labs 06/25/25 04:05 OB - PN A/P Plan day: 2 Plan: routine care and discharge home Time Spent With Patient Time: Total time spent is greater than 50% in coordination of care (as documented) at patient's floor/unit and/or counseling patient: Exam 2 Narrative: inc c/d/i : Bimanual exam- vagina & uterus: other (Uterus firm, nt @U)
[2025-06-26] MEDS: DOCUSATE SODIUM 100 MG CAPSULE PO (08:26)
[2025-06-26] MEDS: MULTIVIT/MIN/PREN/FOL AC/IRON TABLET 1 TAB PO (08:27)
[2025-06-26] MEDS: SIMETHICONE 80 MG TAB.CHEW PO (08:27)
[2025-06-26] MEDS: MEASLES,MUMPS,RUBELLA VACCINE 0.5 ML VIAL SUB-Q (08:27)
[2025-06-26 08:29] VITALS: BP 135/79; PULSE 94; RESP 18; TEMP 36.8; O2SAT 99
--- NOTE | 2025-06-26 09:10 | PC.NURSE ---
Consulted with mother concerning needs and she shared her ability to independently latch infant optimally without pain. Patient had baby latched in cradle hold on the left breast independently at this time. Mother is feeding appropriately for growth of infant and understands stimulating infant to eat if needed. Patient is supplementing with formula and is advised that she must stimulate the breast at least 8 times a day to establish a robust milk supply. Reviewed nutritive versus nonnutritive feeding at the breast. has had appropriate feedings in the last 24 hours meets the outcomes for weight, output, blood sugar and jaundice at this time. Reinforced understanding of milk production, prevention/relief of engorgement, plugged ducts, mastitis, community resources ([facility] referral), and when to call a provider using the resource of the feeding sheet along with the mom and baby guide. She has an electric breast pump for home use. Mother voiced understanding of the information shared, is confident to continue effectively her infant at home, when to call for assistance, denies any additional assistance or education at this time. Reported to the Primary RN.
--- NOTE | 2025-06-26 09:14 | PC.NURSE ---
Patient viewed the discharge video Mother & Baby Care, The First Two Weeks. Patient was given the opportunity and encouraged to ask questions. Patient verbalized understanding of information shared and has been given the mother/baby guide for home reference.
[2025-06-28 11:47] VITALS: BP 147/85; PULSE 86; RESP 18; TEMP 36.7; O2SAT 99
== END 2025-06-26 10:16 | disposition home or self-care (01) | DRG 788 ==
LOC: ANHOB2 06-29 11:52 → ANHLDR 06-29 11:52
PROVIDERS: Admitting Provider Obstetrics & Gynecology; PCP Internal Medicine; Visit Provider Obstetrics & Gynecology Gynecology
PROC: 10D00Z1 Extraction of Products of Conception, Low, Open Approach (ICD-10-PCS; CPT 59514; principal; 2025-06-24 17:00)
DX: O10.92 Unspecified pre-existing hypertension complicating childbirth (principal); Z37.0 Single live birth; Z3A.39 39 weeks gestation of pregnancy; O62.1 Secondary uterine inertia
CPT/HCPCS: 36415; 85025; 86593; 86850; 86900; 86901; 90710; J0690; A9270; J0456; J1885; J2274; J2371; J2405; J2590; J2704; J7050; J7120